=== PATIENT | male | born 1960 | race African-American/Black ===

== ENCOUNTER 2016-07-22 22:14 | Inpatient (IN) | payer OTHER ==
[~2016-07-22] VITALS: Ht 182.9 cm; Wt 95.4 kg
[~2016-07-22 22:14] MED LIST: DOLU1TAB PO; EMTR1TAB10 PO; GLC/500 PO; LPT10 PO; TRDI60 INJ
[2016-07-22] MEDS ORDERED: MoRPHine SULFATE 4 MG/ML 1 ML CARP\\VIAL IV STA (22:58)
[2016-07-22] MEDS ORDERED: SODIUM CHLORIDE 0.9% 1000ML 1,000 ML IV STA (22:58)
[2016-07-22] MEDS ORDERED: ONDANSETRON INJ 2 MG/ML 2 ML VIAL IV STA (22:58)
[2016-07-22] MEDS ORDERED: CHOLCAP5 PO (23:00)
--- NOTE | 2016-07-22 23:05 | EMERGENCY ROOM VISIT NOTE ---
History Report prepared by Jayna: Robert Olivier Under the Supervision of: Neil GongoraO. First contact with patient: 22:48 Chief Complaint: ABDOMINAL PAIN Stated Complaint: ABD PAIN/ [facility] Nursing Triage Summary: pt is an inmate at [facility], pt states not long after he ate supper tonight he developed right upper abd pain that radiates to the left. pt denies ever having this pain prior. pt does still have his gall bladder and appendix History of Present Illness The patient is a 56 year old male who presents to the Emergency Room with complaints of persistent right upper quadrant abdominal pain that began today a few hours prior to arrival. He currently rates his pain as a 9/10 in severity, but notes that it was originally 10/10 at onset. The patient states that his pain onset today following a bowel movement. He denies any vomiting or recent fevers. He does mention that he noticed some dark red blood in his stool a couple of days ago. He denies any history of ulcers. Source of History: patient Onset: A few hours [employer] Position: abdomen (RLQ) Symptom Intensity: 9/10 in severity Timing: other (Persistent) Associated Symptoms: No fevers, No vomiting Note: Patient notes dark red stool in the blood. Review of Systems See HPI for pertinent positives and negatives. A total of ten systems were reviewed and were otherwise negative. Past Medical & Surgical Medical Problems: (1) Neck pain Family History No pertinent family histories were recorded. Social History Smoking Status: Current Some Day Smoker Drug Use: cocaine Housing Status: other (Correctional facility) Occupation Status: other (inprisoned) Current/Historical Medications Scheduled Atorvastatin (Atorvastatin Calcium), 10 MG PO DAILY Cholecalciferol (Vitamin D3), 5,000 UNIT PO DAILY Dolutegravir Sodium (Tivicay), 50 MG PO DAILY Emtricitabine-Tenofovir Alafen (Descovy 200-25 mg), 1 TAB PO DAILY Metformin Hcl (Glucophage), 500 MG PO BID Allergies Coded Allergies: No Known Allergies (Unverified , 07/22/16) Physical Exam Vital Signs Date Time Temp Pulse Resp B/P (MAP) Pulse Ox O2 Delivery O2 Flow Rate FiO2 07/23/16 03:01 67 16 107/77 95 Room Air 07/23/16 02:31 68 19 107/72 94 Room Air 07/23/16 02:01 67 18 111/75 94 Room Air 07/23/16 01:30 74 21 121/81 95 07/23/16 01:00 72 17 137/83 95 07/23/16 00:45 132/87 07/23/16 00:00 74 18 124/73 93 07/22/16 23:30 74 19 123/76 88 07/22/16 23:01 145/86 07/22/16 22:28 36.4 72 26 135/85 99 Room Air Physical Exam GENERAL: Awake, alert, righting in pain. HENT: Normocephalic, atraumatic. Oropharynx unremarkable. EYES: Normal conjunctiva. Sclera non-icteric. NECK: Supple. No nuchal rigidity. FROM. No JVD. RESPIRATORY: Clear to auscultation. CARDIAC: Regular rate, normal rhythm. Extremities warm and well perfused. Pulses equal. ABDOMEN: Soft, distended. Tenderness in the RUQ and RLQ. No rebound or guarding. No masses. RECTAL: Deferred. MUSCULOSKELETAL: Chest examination reveals no tenderness. The back is symmetrical on inspection without obvious abnormality. There is no CVA tenderness to palpation. No joint edema. LOWER EXTREMITIES: Calves are equal size bilaterally and non-tender. No edema. No discoloration. NEURO: Normal sensorium. No sensory or motor deficits noted. SKIN: No rash or jaundice noted. Medical Decision & Procedures ER Provider Diagnostic Interpretation: X ray results as stated below per my interpretation and radiologist interpretation. Other radiology results as stated below per my review and radiologist interpretation CT SCAN OF THE ABDOMEN AND PELVIS WITH IV CONTRAST CLINICAL HISTORY: Right upper quadrant abdominal pain. COMPARISON STUDY: No priors. TECHNIQUE: Following the IV administration of 93 cc of Optiray 320, CT scan of the abdomen and pelvis is performed from the lung bases to the proximal femora. Images are reviewed in the axial, sagittal, and coronal planes. IV contrast was administered without complication. Automated dose control exposure was utilized. CT DOSE: 489.57 mGy.cm FINDINGS: Lung bases: The heart is mildly enlarged and without pericardial effusion. The lung bases are clear noting dependent atelectasis. There is a tiny hiatal hernia. Liver: The contrast-enhanced liver is normal in size, contour, and attenuation. There is no intrahepatic biliary ductal dilatation. The hepatic veins and portal veins are patent. There is a 3.2 cm low-attenuation lesion in the right hepatic lobe seen on image #84. This demonstrates small foci of peripheral nodular enhancement, and although incompletely characterized likely represents a hemangioma. A similar-appearing 1.4 cm lesion is seen in the left lobe on image #62. Gallbladder: Unremarkable. Spleen: Normal in size and attenuation. Pancreas: Unremarkable. Adrenal glands: Unremarkable. Kidneys: The contrast enhanced kidneys are normal in size and without hydronephrosis. The kidneys enhance symmetrically. A 2.1 cm cyst is identified in the right upper pole. Abdominal vasculature: The abdominal aorta is normal in course and caliber noting mild atherosclerotic calcification. Bowel: There is no evidence of bowel obstruction. There are numerous mildly distended and fluid-filled loops of small bowel in the lower abdomen and pelvis. These measure up to 2.8 cm in diameter. These lobes appear minimally thick-walled and hyperemic. Mild perienteric stranding is noted. The appearance suggests a nonspecific enteritis. The appendix is well-visualized and normal. Peritoneum: There is no intraperitoneal free air. Trace free fluid is seen in the pelvis. There is a small fat-containing umbilical hernia. Lymphadenopathy: None. Pelvic viscera: The prostate gland is enlarged and heterogeneous, measuring 5 cm in transverse diameter. The bladder wall is thickened and trabeculated suggesting chronic outlet obstruction. The seminal vesicles are normal as visualized . Skeletal structures: No lytic or blastic lesions are seen. There are scattered bone islands noted in the lumbar spine pelvis. Mild arthritic change is seen in the hips. IMPRESSION: 1. Findings suggest a nonspecific enteritis of the mid to distal small bowel. This is likely on an infectious or inflammatory basis in this age group. Clinical correlation will be required. 2. There is no convincing evidence of mechanical bowel obstruction. 3. Mild cardiomegaly. 4. There are 2 incompletely characterized hepatic lesions as above measuring up to 3.2 cm with imaging characteristics that suggest these likely represent benign hemangiomas. Follow-up with a nonemergent MRI of the liver is recommended for definitive characterization. 5. Prostatomegaly with evidence of chronic bladder outlet obstruction. 6. Trace fluid in the pelvis is likely on a reactive basis. 7. Additional findings as above. Electronically signed by: Jorge Brady M.D. 07/23/2016 12:52 AM Dictated Date/Time: 07/23/2016 12:42 AM Laboratory Results 07/22/16 22:25 Red Blood Count 4.36, Mean Corpuscular Volume 94.5, Mean Corpuscular Hemoglobin 32.3, Mean Corpuscular Hemoglobin Concent 34.2, Mean Platelet Volume 9.2, Neutrophils (%) (Auto) 56.6, Lymphocytes (%) (Auto) 34.6, Monocytes (%) (Auto) 8.0, Eosinophils (%) (Auto) 0.4, Basophils (%) (Auto) 0.1, Neutrophils # (Auto) 4.04, Lymphocytes # (Auto) 2.47, Monocytes # (Auto) 0.57, Eosinophils # (Auto) 0.03, Basophils # (Auto) 0.01 07/22/16 22:25 Test 07/22/16 22:25 07/23/16 01:07 White Blood Count 7.14 K/uL (4.8-10.8) Red Blood Count 4.36 M/uL (4.7-6.1) Hemoglobin 14.1 g/dL (14.0-18.0) Hematocrit 41.2 % (42-52) Mean Corpuscular Volume 94.5 fL (80-100) Mean Corpuscular Hemoglobin 32.3 pg (25-34) Mean Corpuscular Hemoglobin Concent 34.2 g/dl (32-36) Platelet Count 192 K/uL (130-400) Mean Platelet Volume 9.2 fL (7.4-10.4) Neutrophils (%) (Auto) 56.6 % Lymphocytes (%) (Auto) 34.6 % Monocytes (%) (Auto) 8.0 % Eosinophils (%) (Auto) 0.4 % Basophils (%) (Auto) 0.1 % Neutrophils # (Auto) 4.04 K/uL (1.4-6.5) Lymphocytes # (Auto) 2.47 K/uL (1.2-3.4) Monocytes # (Auto) 0.57 K/uL (0.11-0.59) Eosinophils # (Auto) 0.03 K/uL (0-0.5) Basophils # (Auto) 0.01 K/uL (0-0.2) RDW Standard Deviation 42.9 fL (36.4-46.3) RDW Coefficient of Variation 12.3 % (11.5-14.5) Immature Granulocyte % (Auto) 0.3 % Immature Granulocyte # (Auto) 0.02 K/uL (0.00-0.02) Anion Gap 8.0 mmol/L (3-11) Est Creatinine Clear Calc Drug Dose 88.0 ml/min Estimated GFR () 85.9 Estimated GFR (Non- 74.1 BUN/Creatinine Ratio 16.0 (10-20) Calcium Level 9.3 mg/dl (8.5-10.1) Total Bilirubin 0.3 mg/dl (0.2-1) Direct Bilirubin mg/dl (0-0.2) Aspartate Amino Transf (AST/SGOT) 23 U/L (15-37) Alanine Aminotransferase (ALT/SGPT) 23 U/L (12-78) Alkaline Phosphatase 59 U/L (45-117) Total Protein 7.8 gm/dl (6.4-8.2) Albumin 4.2 gm/dl (3.4-5.0) Lipase 526 U/L (73-393) Chemistry Specimen Hemolysis Urine Color YELLOW Urine Appearance CLEAR (CLEAR) Urine pH 5.0 (4.5-7.5) Urine Specific [place] 1.043 (1.000-1.030) Urine Protein NEG (NEG) Urine Glucose (UA) NEG (NEG) Urine Ketones NEG (NEG) Urine Occult Blood NEG (NEG) Urine Nitrite NEG (NEG) Urine Bilirubin NEG (NEG) Urine Urobilinogen NEG (NEG) Urine Leukocyte Esterase NEG (NEG) Laboratory results reviewed by me Medications Administered Medications (Trade) Dose Ordered Sig/Pamela Route Start Time Stop Time Status Last Admin Dose Admin Sodium Chloride 1,000 ml @ 999 mls/hr Q1H1M STAT IV 07/22/16 22:58 07/22/16 23:58 DC 07/22/16 23:13 999 MLS/HR Ondansetron HCl (Zofran Inj) 4 mg NOW STAT IV 07/22/16 22:58 07/22/16 23:02 DC 07/22/16 23:12 4 MG Morphine Sulfate (MoRPHine SULFATE INJ) 4 mg NOW STAT IV 07/22/16 22:58 07/22/16 23:02 DC 07/22/16 23:12 4 MG Morphine Sulfate (MoRPHine SULFATE INJ) 4 mg NOW STAT IV 07/23/16 01:17 07/23/16 01:18 DC 07/23/16 01:33 4 MG Ondansetron HCl (Zofran Inj) 4 mg NOW STAT IV 07/23/16 01:17 07/23/16 01:18 DC 07/23/16 01:33 4 MG Ciprofloxacin/ Dextrose (Cipro / D5W) 400 mg STK-MED ONCE .ROUTE 07/23/16 02:39 07/23/16 02:40 DC 07/23/16 02:42 400 MG ED Course 2255: The patient was evaluated in room B10. A complete history and physical exam was performed. 2258: Ordered Morphine Sulfate 4 mg IV, Zofran 4 mg IV, Sodium Chloride 1000 mL @ 999 mL/hr IV. 0117: Ordered Zofran 4 mg IV, Morphine Sulfate 4 mg IV. 0230: Dr. Yazmin BECK Hospitalist will evaluate this patient for further treatment. Medical Decision Differential Diagnosis includes: Cholecystitis, appendicitis, colitis, gastroenteritis, bowel obstruction, dehydration, pancreatitis. Continues complaining of pain; patient on IV pain medicine IV fluids. Patient has mild pancreatitis enteritis. Case was discussed with the hospitalist for admission patient will be admitted for intractable abdominal pain Consults Time Called: 0204 Consulting Physician: Dr. Yazmin BECK Hospitalist Returned Call: 0230 Dr. Yazmin BECK Hospitalist will evaluate this patient for further treatment. Impression Primary Impression: Abdominal pain Additional Impressions: Enteritis Pancreatitis Scribe Attestation The scribe's documentation has been prepared under my direction and personally reviewed by me in its entirety. I confirm that the note above accurately reflects all work, treatment, procedures, and medical decision making performed by me. Departure Information Dispostion Being Evaluated By Hospitalist Referrals Vida ESPINO (PCP) Patient Instructions My [facility] Problem Qualifiers
[2016-07-22 23:15] LABS: BASO % 0.1 %; BASO ABS # 0.01 K/uL (0-0.2); COMPLETE YES; EOS % 0.4 %; HEMATOCRIT 41.2 % (42-52); IG% 0.3 %; LYMPH % 34.6 %; LYMPH ABS # 2.47 K/uL (1.2-3.4); MEAN CELL VOLUME 94.5 fL (80-100); MEAN CORPUSCULAR HEMOGLOBIN 32.3 pg (25-34); MEAN CORPUSCULAR HGB CONC 34.2 g/dl (32-36); MEAN PLATELET VOLUME 9.2 fL (7.4-10.4); NEUT % 56.6 %; PLATELET COUNT 192 K/uL (130-400); RED BLOOD COUNT 4.36 M/uL (4.7-6.1); WHITE BLOOD COUNT 7.14 K/uL (4.8-10.8)
[2016-07-22] MEDS ORDERED: OPTIRAY 320 IV PRN (23:15)
[2016-07-22 23:44] LABS: ALKALINE PHOSPHATASE 59 U/L (45-117); ALT/SGPT 23 U/L (12-78); AST/SGOT 23 U/L (15-37); BLOOD UREA NITROGEN 18 mg/dl (7-18); CALCIUM 9.3 mg/dl (8.5-10.1); CARBON DIOXIDE 29 mmol/L (21-32); CHLORIDE 106 mmol/L (98-107); GLUCOSE 114 mg/dl (70-99); POTASSIUM 3.9 mmol/L (3.5-5.1); SODIUM 143 mmol/L (136-145)
--- NOTE | 2016-07-23 00:54 | DIAGNOSTIC IMAGING REPORT ---
CT SCAN OF THE ABDOMEN AND PELVIS WITH IV CONTRAST CLINICAL HISTORY: Right upper quadrant abdominal pain. COMPARISON STUDY: No priors. TECHNIQUE: Following the IV administration of 93 cc of Optiray 320, CT scan of the abdomen and pelvis is performed from the lung bases to the proximal femora. Images are reviewed in the axial, sagittal, and coronal planes. IV contrast was administered without complication. Automated dose control exposure was utilized. CT DOSE: 489.57 mGy.cm FINDINGS: Lung bases: The heart is mildly enlarged and without pericardial effusion. The lung bases are clear noting dependent atelectasis. There is a tiny hiatal hernia. Liver: The contrast-enhanced liver is normal in size, contour, and attenuation. There is no intrahepatic biliary ductal dilatation. The hepatic veins and portal veins are patent. There is a 3.2 cm low-attenuation lesion in the right hepatic lobe seen on image #84. This demonstrates small foci of peripheral nodular enhancement, and although incompletely characterized likely represents a hemangioma. A similar-appearing 1.4 cm lesion is seen in the left lobe on image #62. Gallbladder: Unremarkable. Spleen: Normal in size and attenuation. Pancreas: Unremarkable. Adrenal glands: Unremarkable. Kidneys: The contrast enhanced kidneys are normal in size and without hydronephrosis. The kidneys enhance symmetrically. A 2.1 cm cyst is identified in the right upper pole. Abdominal vasculature: The abdominal aorta is normal in course and caliber noting mild atherosclerotic calcification. Bowel: There is no evidence of bowel obstruction. There are numerous mildly distended and fluid-filled loops of small bowel in the lower abdomen and pelvis. These measure up to 2.8 cm in diameter. These lobes appear minimally thick-walled and hyperemic. Mild perienteric stranding is noted. The appearance suggests a nonspecific enteritis. The appendix is well-visualized and normal. Peritoneum: There is no intraperitoneal free air. Trace free fluid is seen in the pelvis. There is a small fat-containing umbilical hernia. Lymphadenopathy: None. Pelvic viscera: The prostate gland is enlarged and heterogeneous, measuring 5 cm in transverse diameter. The bladder wall is thickened and trabeculated suggesting chronic outlet obstruction. The seminal vesicles are normal as visualized . Skeletal structures: No lytic or blastic lesions are seen. There are scattered bone islands noted in the lumbar spine pelvis. Mild arthritic change is seen in the hips. IMPRESSION: 1. Findings suggest a nonspecific enteritis of the mid to distal small bowel. This is likely on an infectious or inflammatory basis in this age group. Clinical correlation will be required. 2. There is no convincing evidence of mechanical bowel obstruction. 3. Mild cardiomegaly. 4. There are 2 incompletely characterized hepatic lesions as above measuring up to 3.2 cm with imaging characteristics that suggest these likely represent benign hemangiomas. Follow-up with a nonemergent MRI of the liver is recommended for definitive characterization. 5. Prostatomegaly with evidence of chronic bladder outlet obstruction. 6. Trace fluid in the pelvis is likely on a reactive basis. 7. Additional findings as above. Electronically signed by: Jorge Brady M.D. 07/23/2016 12:52 AM Dictated Date/Time: 07/23/2016 12:42 AM
[2016-07-23 01:17] LABS: URINE APPEARANCE CLEAR (CLEAR); URINE BILIRUBIN NEG (NEG); URINE COLOR YELLOW; URINE NITRITE NEG (NEG); URINE SPECIFIC GRAVITY 1.043 (1.000-1.030); UROBILINOGEN NEG (NEG); ZZUR CULT IF INDIC CLEAN CATCH NO
[2016-07-23] MEDS ORDERED: MoRPHine SULFATE 4 MG/ML 1 ML CARP\\VIAL IV STA (01:17)
[2016-07-23] MEDS ORDERED: ONDANSETRON INJ 2 MG/ML 2 ML VIAL IV STA (01:17)
[2016-07-23 01:23] LABS: MANUAL MICROSCOPIC REQUIRED? NO; REVIEW REQ? NO
[2016-07-23] MEDS ORDERED: CIPROFLOXACIN 400MG / 200ML D5W IV STA (02:30)
[2016-07-23] MEDS ORDERED: CIPROFLOXACIN 400MG / 200ML D5W ONE (02:39)
[2016-07-23] MEDS ORDERED: DEXTROSE 50% 50 ML SYR IV PRN (03:15)
[2016-07-23] MEDS ORDERED: GLUCAGON FOR INJ 1 MG VIAL SQ PRN (03:15)
[2016-07-23] MEDS ORDERED: ACETAMINOPHEN IV 100 ML IV PRN (03:15)
[2016-07-23] MEDS ORDERED: GLUCOSE 10 TABS/TUBE PO PRN (03:15)
[2016-07-23] MEDS ORDERED: GLUCOSE 40% GEL 15 GM TUBE PO PRN (03:15)
[2016-07-23] MEDS ORDERED: MoRPHine SULFATE 4 MG/ML 1 ML CARP\\VIAL IV PRN (03:15)
[2016-07-23] MEDS ORDERED: MoRPHine SULFATE 2 MG/ML CARP IV PRN (03:15)
[2016-07-23 03:57] VITALS: BP 130/82; PULSE 84; TEMP 36.6; O2SAT 90; Ht 182.9 cm; Wt 95.4 kg
[2016-07-23] MEDS: NSS + 20MEQ KCL 1000ML 1,000 ML IV SCH ×2 (04:40→14:03)
[2016-07-23] MEDS: METRONIDAZOLE / NSS 500 MG in PREMIXED NSS 100 ML IV SCH ×3 (04:40→19:48)
--- NOTE | 2016-07-23 04:45 | History and Physical ---
History & Physical Date & Time of Service: Jul 23, 2016 at 04:45 Chief Complaint: Enteritis, Bph Bladder Outlet Obstruction Primary Care Physician: Vida ESPINO History of Present Illness Source: patient The patient is a 56-year-old male inmate of [facility], who presents to the emergency department with right upper quadrant pain that began a few hours prior to arrival, just after a bowel movement. He has not had any recent fevers or chills, or nausea or vomiting. He reports seeing some dark red blood in the stool a few days ago. He has not had any recent change in dietary intake. Social History Smoking Status: Current Some Day Smoker Smokeless Tobacco Use: No Alcohol Use: none Drug Use: cocaine Housing status: other Occupational Status: other (inprisoned) Multi-Drug Resistant Organisms History of MDRO: No Allergies Coded Allergies: No Known Allergies (Unverified , 07/22/16) Home Medications Scheduled Atorvastatin (Atorvastatin Calcium), 10 MG PO DAILY Cholecalciferol (Vitamin D3), 5,000 UNIT PO DAILY Dolutegravir Sodium (Tivicay), 50 MG PO DAILY Emtricitabine-Tenofovir Alafen (Descovy 200-25 mg), 1 TAB PO DAILY Metformin Hcl (Glucophage), 500 MG PO BID Review of Systems The patient denies chest pain, palpitations, shortness of breath, cough, lower extremity swelling, vision change, hearing change, sore throat, fevers, chills, sweats, weight change, fatigue, nausea, vomiting, blood in urine, dysuria, urinary frequency or urgency, lightheadedness, dizziness, headache, memory loss , rash, imbalance, focal weakness, numbness or tingling in arms or legs, arthralgias or myalgias, back or neck pain, night sweats, or allergy symptoms. The review of systems is otherwise negative other than for that already noted above, and at least 10 systems have been reviewed. Physical Exam Vital Signs Date Time Temp Pulse Resp B/P (MAP) Pulse Ox O2 Delivery O2 Flow Rate FiO2 07/23/16 03:57 36.6 84 20 130/82 90 Room Air 07/23/16 03:01 67 16 107/77 95 Room Air 07/23/16 02:31 68 19 107/72 94 Room Air 07/23/16 02:01 67 18 111/75 94 Room Air 07/23/16 01:30 74 21 121/81 95 07/23/16 01:00 72 17 137/83 95 07/23/16 00:45 132/87 07/23/16 00:00 74 18 124/73 93 07/22/16 23:30 74 19 123/76 88 07/22/16 23:01 145/86 07/22/16 22:28 36.4 72 26 135/85 99 Room Air The patient is awake, well-developed and adequately nourished, alert and oriented 3, normocephalic and atraumatic, lying in bed and in no acute distress. HEENT--PERRL, EOMI, mucous membranes and oropharynx dry. Neck--supple, no JVD or bruits, thyroid normal, trachea midline, no adenopathy. Heart--normal S1 and S2, no extra beats, no murmurs, rubs or gallops. Lungs--clear bilaterally but diminished throughout, no respiratory distress, no accessory muscle use. Abdomen--normal bowel sounds and soft, tender epigastric area, nondistended, no hernias or masses, no organomegaly. Extremities--no cyanosis, clubbing or edema. There are good distal pulses b/l. Dermatologic--normal skin turgor, normal color, warm and dry, no abnormal lymph nodes, no rash. Neurologic--cranial nerves II through XII grossly intact, motor and sensory examination normal. Rheumatologic--normal range of motion, nontender, muscles and joints. Psychiatric--normal affect. Diagnostics Laboratory Results Results Past 24 Hours Test 07/22/16 22:25 07/23/16 01:07 Range/Units White Blood Count 7.14 4.8-10.8 K/uL Red Blood Count 4.36 4.7-6.1 M/uL Hemoglobin 14.1 14.0-18.0 g/dL Hematocrit 41.2 42-52 % Mean Corpuscular Volume 94.5 80-100 fL Mean Corpuscular Hemoglobin 32.3 25-34 pg Mean Corpuscular Hemoglobin Concent 34.2 32-36 g/dl Platelet Count 192 130-400 K/uL Mean Platelet Volume 9.2 7.4-10.4 fL Neutrophils (%) (Auto) 56.6 % Lymphocytes (%) (Auto) 34.6 % Monocytes (%) (Auto) 8.0 % Eosinophils (%) (Auto) 0.4 % Basophils (%) (Auto) 0.1 % Neutrophils # (Auto) 4.04 1.4-6.5 K/uL Lymphocytes # (Auto) 2.47 1.2-3.4 K/uL Monocytes # (Auto) 0.57 0.11-0.59 K/uL Eosinophils # (Auto) 0.03 0-0.5 K/uL Basophils # (Auto) 0.01 0-0.2 K/uL RDW Standard Deviation 42.9 36.4-46.3 fL RDW Coefficient of Variation 12.3 11.5-14.5 % Immature Granulocyte % (Auto) 0.3 % Immature Granulocyte # (Auto) 0.02 0.00-0.02 K/uL Sodium Level 143 136-145 mmol/L Potassium Level 3.9 3.5-5.1 mmol/L Chloride Level 106 98-107 mmol/L Carbon Dioxide Level 29 21-32 mmol/L Anion Gap 8.0 3-11 mmol/L Blood Urea Nitrogen 18 7-18 mg/dl Creatinine 1.10 0.60-1.40 mg/dl Est Creatinine Clear Calc Drug Dose 88.0 ml/min Estimated GFR () 85.9 Estimated GFR (Non- 74.1 BUN/Creatinine Ratio 16.0 10-20 Random Glucose 114 70-99 mg/dl Calcium Level 9.3 8.5-10.1 mg/dl Total Bilirubin 0.3 0.2-1 mg/dl Direct Bilirubin 0-0.2 mg/dl Aspartate Amino Transf (AST/SGOT) 23 15-37 U/L Alanine Aminotransferase (ALT/SGPT) 23 12-78 U/L Alkaline Phosphatase 59 45-117 U/L Total Protein 7.8 6.4-8.2 gm/dl Albumin 4.2 3.4-5.0 gm/dl Lipase 526 73-393 U/L Chemistry Specimen Hemolysis Urine Color YELLOW Urine Appearance CLEAR CLEAR Urine pH 5.0 4.5-7.5 Urine Specific [place] 1.043 1.000-1.030 Urine Protein NEG NEG Urine Glucose (UA) NEG NEG Urine Ketones NEG NEG Urine Occult Blood NEG NEG Urine Nitrite NEG NEG Urine Bilirubin NEG NEG Urine Urobilinogen NEG NEG Urine Leukocyte Esterase NEG NEG Microbiology Results 07/23/16 MRSA DNA Surveillance Screen, Received Pending Diagnostic Radiology Patient Name: AMARJIT SCHREIBER [id number] Unit Number: [id number] Dictated: 07/23/1641 Transcribed: 07/23/1641 EV Printed Date/Time: [~ rep prt dt]/[~ rep prt tm] [~ rep ct labl] - [~ rep ct ivnm] [facility] [place] [address] Dictated: 07/23/1641 Transcribed: 07/23/1641 EV Printed Date/Time: [~ rep prt dt]/[~ rep prt tm] [~ rep ct labl] - [~ rep ct ivnm] [~ rep ct add3]] CT SCAN OF THE ABDOMEN AND PELVIS WITH IV CONTRAST CLINICAL HISTORY: Right upper quadrant abdominal pain. COMPARISON STUDY: No priors. TECHNIQUE: Following the IV administration of 93 cc of Optiray 320, CT scan of the abdomen and pelvis is performed from the lung bases to the proximal femora. Images are reviewed in the axial, sagittal, and coronal planes. IV contrast was administered without complication. Automated dose control exposure was utilized. CT DOSE: 489.57 mGy.cm FINDINGS: Lung bases: The heart is mildly enlarged and without pericardial effusion. The lung bases are clear noting dependent atelectasis. There is a tiny hiatal hernia. Liver: The contrast-enhanced liver is normal in size, contour, and attenuation. There is no intrahepatic biliary ductal dilatation. The hepatic veins and portal veins are patent. There is a 3.2 cm low-attenuation lesion in the right hepatic lobe seen on image #84. This demonstrates small foci of peripheral nodular enhancement, and although incompletely characterized likely represents a hemangioma. A similar-appearing 1.4 cm lesion is seen in the left lobe on image #62. Gallbladder: Unremarkable. Spleen: Normal in size and attenuation. Pancreas: Unremarkable. Adrenal glands: Unremarkable. Kidneys: The contrast enhanced kidneys are normal in size and without hydronephrosis. The kidneys enhance symmetrically. A 2.1 cm cyst is identified in the right upper pole. Abdominal vasculature: The abdominal aorta is normal in course and caliber noting mild atherosclerotic calcification. Bowel: There is no evidence of bowel obstruction. There are numerous mildly distended and fluid-filled loops of small bowel in the lower abdomen and pelvis. These measure up to 2.8 cm in diameter. These lobes appear minimally thick-walled and hyperemic. Mild perienteric stranding is noted. The appearance suggests a nonspecific enteritis. The appendix is well-visualized and normal. Peritoneum: There is no intraperitoneal free air. Trace free fluid is seen in the pelvis. There is a small fat-containing umbilical hernia. Lymphadenopathy: None. Pelvic viscera: The prostate gland is enlarged and heterogeneous, measuring 5 cm in transverse diameter. The bladder wall is thickened and trabeculated suggesting chronic outlet obstruction. The seminal vesicles are normal as visualized . Skeletal structures: No lytic or blastic lesions are seen. There are scattered bone islands noted in the lumbar spine pelvis. Mild arthritic change is seen in the hips. IMPRESSION: 1. Findings suggest a nonspecific enteritis of the mid to distal small bowel. This is likely on an infectious or inflammatory basis in this age group. Clinical correlation will be required. 2. There is no convincing evidence of mechanical bowel obstruction. 3. Mild cardiomegaly. 4. There are 2 incompletely characterized hepatic lesions as above measuring up to 3.2 cm with imaging characteristics that suggest these likely represent benign hemangiomas. Follow-up with a nonemergent MRI of the liver is recommended for definitive characterization. 5. Prostatomegaly with evidence of chronic bladder outlet obstruction. 6. Trace fluid in the pelvis is likely on a reactive basis. 7. Additional findings as above. Electronically signed by: Jorge Brady M.D. 07/23/2016 12:52 AM Dictated Date/Time: 07/23/2016 12:42 AM The status of this report is Signed. Draft = Not yet reviewed or approved by Radiologist. Signed = Reviewed and approved by Radiologist. <AttendingPhy></AttendingPhy> <FamilyPhy>SCIVida</FamilyPhy> <PrimaryPhy>SCIRicoVida</PrimaryPhy> <UnitNumber>[id number]</UnitNumber> <VisitNumber> [id number]</VisitNumber> <PatientName>AMARJIT SCHREIBER [id number]</PatientName> < DateOfBirth>1960</DateOfBirth> <Location>[facility]</Location> <ServiceDate>04/08</ServiceDate> <MNE>ESINDI</MNE> <OrderingPhy>Bennett, Omari Granados DO</ OrderingPhy> <OrderingPhyMNE>f rep ord dr menchaca</OrderingPhyMNE> <DictatingPhyMNE> f rep dict dr menchaca</DictatingPhyMNE> <CCListMNE>f rep ct mne</CCListMNE> < AdmittingPhyMNE>f pt admit dr menchaca</AdmittingPhyMNE> <AttendingPhyMNE>f pt attend dr menchaca</AttendingPhyMNE> <ConsultingPhyMNE>f pt consult dr menchaca</ConsultingPhyMNE> <FamilyPhyMNE>f pt fam dr menchaca</FamilyPhyMNE> <OtherPhyMNE>f pt other dr menchaca</OtherPhyMNE> < PrimaryPhyMNE>f pt prim care dr menchaca</PrimaryPhyMNE> <ReferringPhyMNE>f pt referring dr menchaca</ReferringPhyMNE> Impression Assessment and Plan Enteritis/dehydration--the patient was admitted to the medical floor. We placed on normal saline with potassium chloride 20 mEq at 100 mils per hour, Cipro 40 mg IV 2 hours, Flagyl 500 mg IV every 8 hours, Zofran 4 mg IV every 6 hours when necessary, Protonix 40 mg IV daily. We'll check stool for culture, O &P and C. difficile. HIV--the patient will need to have his medications Tivicay and Des[facility] due to being nonformulary at the hospital. Consult infectious disease. BPH with MONTANO--will start tamsulosin 0.4 mg by mouth at bedtime. Diabetes mellitus--hold metformin for 500 mg by mouth twice a day, and place on Accu-Cheks before meals and at bedtime with NovoLog coverage scale. Hypercholesterolemia--hold atorvastatin 10 mg by mouth daily. Level of Care Med/Surg Advanced Directives Existing Advance Directive: No Existing Living Will: No Existing Power of Production Specialist: No Resuscitation Status FULL RESUSCITATION VTE Prophylaxis VTE Risk Assessment Done? Y/N: Yes Risk Level: Moderate Given or contraindicated: SCD's
[2016-07-23] MEDS: INSULIN ASPART 100 UNITS/ML 3 ML PEN SC SCH ×4 (06:30→21:37)
[2016-07-23] MEDS: CHOLECALCIFEROL 1000 INTER.UNIT TAB PO SCH (07:31)
[2016-07-23 07:48] VITALS: BP 112/70; PULSE 59; TEMP 36.7; O2SAT 96
[2016-07-23 08:00] VITALS: O2SAT 96
[2016-07-23] MEDS ORDERED: KETOROLAC TROMETHAMINE 15 MG/ML VIAL IV PRN (10:15)
[2016-07-23] MEDS: PANTOprazole INJ 40 MG in SYRINGE 0 ML IV SCH (11:25)
[2016-07-23] MEDS: ACETAMINOPHEN 325 MG TAB PO PRN ×2 (11:32→16:36)
--- NOTE | 2016-07-23 13:47 | Progress Note ---
Subjective Date of Service: Jul 23, 2016. Subjective Pt evaluation today including: conversation w/ patient, physical exam, chart review, lab review, review of studies, review of inpatient medication list feeling better than last night - notes pain now about a 5/10 - still needing morphine but feeling better. no BM - notes feeling almost like having one would help but none. no diarrhea. no vomiting - feels almost like he might get nauseated but not really nauseated either. reiterates good control of HIV as was the case when he and i last met in november. no other complaints Problem List Medical Problems: (1) Abdominal pain Status: Acute (2) Enteritis Status: Acute (3) Failure of outpatient treatment Status: Acute (4) Neck pain on left side Status: Acute (5) Pancreatitis Status: Acute (6) Tonsillitis Status: Acute Review of Systems ROS otherwise negative except for as above Objective Vital Signs Date Time Temp Pulse Resp B/P (MAP) Pulse Ox O2 Delivery O2 Flow Rate FiO2 07/23/16 08:00 96 Room Air 07/23/16 07:48 36.7 59 20 112/70 (84) 96 Room Air 07/23/16 03:57 36.6 84 20 130/82 90 Room Air 07/23/16 03:01 67 16 107/77 95 Room Air 07/23/16 02:31 68 19 107/72 94 Room Air 07/23/16 02:01 67 18 111/75 94 Room Air 07/23/16 01:30 74 21 121/81 95 07/23/16 01:00 72 17 137/83 95 07/23/16 00:45 132/87 07/23/16 00:00 74 18 124/73 93 07/22/16 23:30 74 19 123/76 88 07/22/16 23:01 145/86 07/22/16 22:28 36.4 72 26 135/85 99 Room Air Physical Exam General Appearance: no apparent distress Eyes: EOMI ENT: hearing grossly normal Neck: trachea midline Respiratory/Chest: no respiratory distress, no accessory muscle use Abdomen: soft, + distended (moderately distended mild/moderate tender worse at epigastrum but no guarding/rebound/rigidity) Extremities: normal range of motion Neurologic/Psychiatric: nail kegger II-XII nml as tested, alert, normal mood/affect Skin: normal color, warm/dry Laboratory Results Last 24 Hours Test 07/22/16 22:25 07/23/16 01:07 07/23/16 08:10 07/23/16 11:51 White Blood Count 7.14 K/uL Red Blood Count 4.36 M/uL Hemoglobin 14.1 g/dL Hematocrit 41.2 % Mean Corpuscular Volume 94.5 fL Mean Corpuscular Hemoglobin 32.3 pg Mean Corpuscular Hemoglobin Concent 34.2 g/dl Platelet Count 192 K/uL Mean Platelet Volume 9.2 fL Neutrophils (%) (Auto) 56.6 % Lymphocytes (%) (Auto) 34.6 % Monocytes (%) (Auto) 8.0 % Eosinophils (%) (Auto) 0.4 % Basophils (%) (Auto) 0.1 % Neutrophils # (Auto) 4.04 K/uL Lymphocytes # (Auto) 2.47 K/uL Monocytes # (Auto) 0.57 K/uL Eosinophils # (Auto) 0.03 K/uL Basophils # (Auto) 0.01 K/uL RDW Standard Deviation 42.9 fL RDW Coefficient of Variation 12.3 % Immature Granulocyte % (Auto) 0.3 % Immature Granulocyte # (Auto) 0.02 K/uL Sodium Level 143 mmol/L Potassium Level 3.9 mmol/L Chloride Level 106 mmol/L Carbon Dioxide Level 29 mmol/L Anion Gap 8.0 mmol/L Blood Urea Nitrogen 18 mg/dl Creatinine 1.10 mg/dl Est Creatinine Clear Calc Drug Dose 88.0 ml/min Estimated GFR () 85.9 Estimated GFR (Non- 74.1 BUN/Creatinine Ratio 16.0 Random Glucose 114 mg/dl Calcium Level 9.3 mg/dl Total Bilirubin 0.3 mg/dl Direct Bilirubin mg/dl Aspartate Amino Transf (AST/SGOT) 23 U/L Alanine Aminotransferase (ALT/SGPT) 23 U/L Alkaline Phosphatase 59 U/L Total Protein 7.8 gm/dl Albumin 4.2 gm/dl Lipase 526 U/L Chemistry Specimen Hemolysis Urine Color YELLOW Urine Appearance CLEAR Urine pH 5.0 Urine Specific [place] 1.043 Urine Protein NEG Urine Glucose (UA) NEG Urine Ketones NEG Urine Occult Blood NEG Urine Nitrite NEG Urine Bilirubin NEG Urine Urobilinogen NEG Urine Leukocyte Esterase NEG Bedside Glucose 104 mg/dl 102 mg/dl Assessment and Plan Enteritis/dehydration--continue cipro/flagyl and prns for pain/nausea. given acute onset and severity, without vomiting or diarrhea - agree abx to cover for possible bacterial enteritis. does appear improving. follow clinically. clear liquids, then give consideration for slow advance of diet as tolerated elevated lipase - clinically doesn't appear c/w pancreatitis - likely from intestinal stretch from above. follow clinically; repeat lipase in the future to ensure normalization HIV-- reliable historian and notes good control of HIV, so doubt above relates to HIV/AIDS. as long as he's clinically improving, will hold off on ID consult , continue HIV meds BPH with MONTANO-- tamsulosin 0.4 mg by mouth at bedtime. follow Diabetes mellitus--hold metformin for 500 mg by mouth twice a day, and place on Accu-Cheks before meals and at bedtime with NovoLog coverage scale. sugars reasonable right now, check A1c Hypercholesterolemia--hold atorvastatin 10 mg by mouth daily until able to take PO better DVT proph - lovenox (will follow for any melena since he had darker stool reportedly prior to admission - but certainly nothing in current picture c/w GI bleeding so benefits of VTE prevention outweigh any possible GI bleed risks)
[2016-07-23] MEDS: CIPROFLOXACIN / D5W 400 MG in PREMIXED IN D5W 200 ML IV SCH (14:04)
[2016-07-23 14:32] LABS: ESTIMATED AVERAGE GLUCOSE 134 mg/dl; HA1C FLAG Normal (Normal)
[2016-07-23 14:46] LABS: PROTHROMBIN TIME (PATIENT) 11.2 SECONDS (9.0-12.0)
[2016-07-23 15:04] VITALS: BP 105/67; PULSE 54; TEMP 36.4; O2SAT 94
[2016-07-23 16:00] VITALS: O2SAT 94
[2016-07-23] MEDS ORDERED: NURSING VERBAL MED ORDER ONE (18:30)
[2016-07-23] MEDS ORDERED: ONDANSETRON INJ 2 MG/ML 2 ML VIAL IV PRN (19:15)
[2016-07-23 23:09] VITALS: BP 98/60; PULSE 57; TEMP 36.4; O2SAT 96
[2016-07-24] MEDS: ACETAMINOPHEN 325 MG TAB PO PRN (00:04)
[2016-07-24] MEDS: NSS + 20MEQ KCL 1000ML 1,000 ML IV SCH (02:25)
[2016-07-24] MEDS: CIPROFLOXACIN / D5W 400 MG in PREMIXED IN D5W 200 ML IV SCH ×2 (02:25→13:28)
[2016-07-24] MEDS: METRONIDAZOLE / NSS 500 MG in PREMIXED NSS 100 ML IV SCH ×3 (04:07→20:45)
[2016-07-24 07:30] VITALS: BP 132/82; PULSE 56; TEMP 36.4; O2SAT 98
[2016-07-24 08:00] VITALS: O2SAT 98
[2016-07-24] MEDS: CHOLECALCIFEROL 1000 INTER.UNIT TAB PO SCH (08:52)
[2016-07-24] MEDS: INSULIN ASPART 100 UNITS/ML 3 ML PEN SC SCH ×4 (08:53→20:56)
[2016-07-24] MEDS: ENOXAPARIN 40 MG/0.4 ML SYR SQ SCH (08:54)
[2016-07-24] MEDS: PANTOprazole INJ 40 MG in SYRINGE 0 ML IV SCH (10:48)
[2016-07-24 14:43] VITALS: BP 111/68; PULSE 62; TEMP 36.6; O2SAT 97
[2016-07-24 16:00] VITALS: O2SAT 97
--- NOTE | 2016-07-24 16:00 | Progress Note ---
Subjective Date of Service: Jul 24, 2016. Subjective Pt evaluation today including: conversation w/ patient, physical exam, lab review feeling better had near normal BM pain and bloating improving no nausea tolerating clears well no other new complaitns Problem List Medical Problems: (1) Abdominal pain Status: Acute (2) Enteritis Status: Acute (3) Failure of outpatient treatment Status: Acute (4) Neck pain on left side Status: Acute (5) Pancreatitis Status: Acute (6) Tonsillitis Status: Acute Review of Systems ROS otherwise negative except for as above Objective Vital Signs Date Time Temp Pulse Resp B/P (MAP) Pulse Ox O2 Delivery O2 Flow Rate FiO2 07/24/16 14:43 36.6 62 18 111/68 (82) 97 Room Air 07/24/16 08:00 98 Room Air 07/24/16 07:30 36.4 56 20 132/82 (99) 98 Room Air 07/24/16 00:00 Room Air 07/23/16 23:09 36.4 57 18 98/60 (73) 96 Room Air 07/23/16 16:00 94 Room Air Physical Exam General Appearance: no apparent distress Eyes: EOMI ENT: hearing grossly normal Neck: trachea midline Respiratory/Chest: no respiratory distress, no accessory muscle use Abdomen: soft, + distended (mildly - about the same amount of distention as yesterday, but softer, far less tender, no guarding no rebound) Extremities: normal range of motion Neurologic/Psychiatric: per diem II-XII nml as tested, alert, normal mood/affect Skin: normal color, warm/dry Laboratory Results Last 24 Hours Test 07/23/16 16:31 07/23/16 20:05 07/23/16 21:11 07/24/16 07:42 Bedside Glucose 126 mg/dl 75 mg/dl 104 mg/dl 110 mg/dl Test 07/24/16 12:12 Bedside Glucose 109 mg/dl Assessment and Plan Enteritis/dehydration--continue cipro/flagyl and prns for pain/nausea. given acute onset and severity, without vomiting or diarrhea - agree abx to cover for possible bacterial enteritis. does appear improving. follow clinically. advance diet to low fiber - home ~12-24hrs depending on progress/tolerating diet -notes some degree of on again/off again sx for months - if persists after treating this episode, may need to consider capsule endoscopy since small bowel abnormal on current CT (thought to be due to infectious enteritis acutely, but if sx persist after treatment, then would be worthwhile to pursue) elevated lipase - clinically doesn't appear c/w pancreatitis - likely from intestinal stretch from above. follow clinically; repeat lipase in AM HIV-- reliable historian and notes good control of HIV, so doubt above relates to HIV/AIDS. as long as he's clinically improving, will hold off on ID consult , continue HIV meds BPH with MONTANO-- tamsulosin 0.4 mg by mouth at bedtime. follow Diabetes mellitus--A1c 6.3, holding metformin. would likely dc on metformin just daily (instead of twice a day) Hypercholesterolemia--resume lipitor DVT proph - lovenox
[2016-07-24 23:06] VITALS: BP 145/84; PULSE 63; TEMP 36.7; O2SAT 99
[2016-07-25] MEDS: CIPROFLOXACIN / D5W 400 MG in PREMIXED IN D5W 200 ML IV SCH ×2 (02:41→13:39)
[2016-07-25] MEDS: METRONIDAZOLE / NSS 500 MG in PREMIXED NSS 100 ML IV SCH ×2 (04:44→12:17)
[2016-07-25] MEDS: ACETAMINOPHEN 325 MG TAB PO PRN ×2 (04:53→12:20)
[2016-07-25 07:08] VITALS: BP 137/86; PULSE 53; TEMP 36.6; O2SAT 96
[2016-07-25] MEDS ORDERED: ATORVASTATIN 10 MG TAB PO SCH (08:00)
--- NOTE | 2016-07-25 08:11 | Progress Note ---
Subjective Date of Service: Jul 25, 2016. Problem List Medical Problems: (1) Abdominal pain Status: Acute (2) Enteritis Status: Acute (3) Failure of outpatient treatment Status: Acute (4) Neck pain on left side Status: Acute (5) Pancreatitis Status: Acute (6) Tonsillitis Status: Acute Objective Vital Signs Date Time Temp Pulse Resp B/P (MAP) Pulse Ox O2 Delivery O2 Flow Rate FiO2 07/25/16 07:08 36.6 53 18 137/86 (103) 96 Room Air 07/25/16 00:00 Room Air 07/24/16 23:06 36.7 63 20 145/84 (104) 99 Room Air 07/24/16 16:00 97 Room Air 07/24/16 14:43 36.6 62 18 111/68 (82) 97 Room Air Laboratory Results Last 24 Hours Test 07/24/16 12:12 07/24/16 16:45 07/24/16 20:17 07/25/16 06:25 Bedside Glucose 109 mg/dl 95 mg/dl 101 mg/dl Lipase 165 U/L Test 07/25/16 07:33 Bedside Glucose 102 mg/dl Assessment and Plan Enteritis/dehydration--improving on cipro/flagyl attempt to advance diet to low fiber will recommend GI follo up and consider capsule endoscopy since small bowel abnormal on current CT (thought to be due to infectious enteritis acutely , but if sx persist after treatment, then would be worthwhile to pursue) elevated lipase - clinically no symptoms of pancreatitis HIV-- reliable historian and notes good control of HIV, continue HIV meds BPH voiding without issue- tamsulosin 0.4 mg Diabetes mellitus--A1c 6.3, holding metformin. would likely dc on metformin reduced dose to daily (instead of twice a day) Hypercholesterolemia--resume lipitor DVT proph - lovenox
[2016-07-25] MEDS: CHOLECALCIFEROL 1000 INTER.UNIT TAB PO SCH (08:14)
[2016-07-25] MEDS: ENOXAPARIN 40 MG/0.4 ML SYR SQ SCH (08:15)
[2016-07-25] MEDS: INSULIN ASPART 100 UNITS/ML 3 ML PEN SC SCH ×3 (08:36→16:30)
[2016-07-25] MEDS: PANTOprazole INJ 40 MG in SYRINGE 0 ML IV SCH (12:18)
[2016-07-25] MEDS ORDERED: ONDA4TAB10 SL (13:05)
[2016-07-25] MEDS ORDERED: METR500T PO (13:05)
[2016-07-25] MEDS ORDERED: CPR500 PO (13:05)
--- NOTE | 2016-07-25 13:17 | Discharge Summary ---
Discharge Summary Date of Service Jul 25, 2016. Discharge Summary Admission Date: Jul 23, 2016 at 03:10 Discharge Date: Jul 25, 2016 Discharge Disposition: Home (snf) Principal Diagnosis: enteritis, concurrent HIV +status Medication Reconciliation New Medications: Ciprofloxacin (Ciprofloxacin HCl) 500 Mg Tab 500 MG PO BID for 10 Days, #20 TAB Metronidazole (Flagyl) 500 Mg Tab 500 MG PO TID for 10 Days, #3 TAB Ondasetron Odt (Zofran Odt) 4 Mg Tab 4 MG SL Q6H for Nausea, #6 TAB Continued Medications: Atorvastatin (Atorvastatin Calcium) 10 Mg Tab 10 MG PO DAILY Cholecalciferol (Vitamin D3) 5,000 Unit Cap 5000 UNIT PO DAILY Dolutegravir Sodium (Tivicay) 50 Mg Tab 50 MG PO DAILY Emtricitabine-Tenofovir Alafen (Descovy 200-25 mg) 1 Tab Tab 1 TAB PO DAILY Metformin Hcl (Glucophage) 500 Mg Tab 500 MG PO DAILY, TAB Discharge Exam Review of Systems: Constitutional: No fever, No chills, No sweats Respiratory: No cough, No sputum, No shortness of breath, No dyspnea on exertion Cardiovascular: No chest pain, No edema Abdomen: No pain, No nausea, No diarrhea, No constipation Genitourinary - Male: No hematuria, No dysuria Physical Exam: General Appearance: WD/WN, no apparent distress Eyes: normal inspection, PERRL, EOMI ENT: normal ENT inspection, pharynx normal Neck: supple, no JVD Respiratory/Chest: chest non-tender, lungs clear, normal breath sounds Cardiovascular: regular rate, rhythm, no murmur Abdomen / GI: normal bowel sounds, non tender, soft Extremities: no pedal edema, normal range of motion Neurologic/Psychiatric: alert, oriented x 3 Hospital Course Enteritis/dehydration--improving on cipro/flagyl attempt to advance diet to low fiber will recommend GI follo up and consider capsule endoscopy since small bowel abnormal on current CT thought to be due to infectious enteritis acutely elevated lipase - clinically no symptoms of pancreatitis HIV-- reliable historian and notes good control of HIV, continue HIV meds BPH voiding without issue- tamsulosin 0.4 mg Diabetes mellitus--A1c 6.3, holding metformin. would likely dc on metformin reduced dose to daily (instead of twice a day) Hypercholesterolemia--resume lipitor Total Time Spent: Greater than 30 minutes This includes examination of the patient, discharge planning, medication reconciliation, and communication with other providers. Discharge Instructions Please refer to the electronic Patient Visit Report (Discharge Instructions) for additional information.
--- NOTE | 2016-07-25 14:58 | Discharge Instructions ---
Discharge Instructions Date of Service Jul 25, 2016. Admission Reason for Admission: Enteritis, Bph Bladder Outlet Obstruction Discharge Discharge Diagnosis / Problem: enteritis Discharge Goals Goal(s): Diagnostic testing, Therapeutic intervention Activity Recommendations Activity Limitations: resume your previous activity . Current Hospital Diet Patient's current hospital diet: Diabetes Type 2 Diet, Low Fiber Diet Discharge Diet Recommended Diet: Regular Diet Pending Studies Studies pending at discharge: no Laboratory Results Hemoglobin A1c Test 07/23/16 14:08 Range/Units Estimated Average Glucose 134 mg/dl Hemoglobin A1c 6.3 H 4.5-5.6 % Medical Emergencies . Who to Call and When: Medical Emergencies: If at any time you feel your situation is an emergency, please call 911 immediately. . Non-Emergent Contact Non-Emergency issues call your: Primary Care Provider Call Non-Emergent contact if: temperature is above 101, your pain is unusual for you . . "Provider Documentation" section prepared by Jake Rodriguez. . VTE Core Measure Inpt VTE Proph given/why not?: SCD's
[2016-07-25 15:59] VITALS: BP 150/96; PULSE 60; TEMP 36.7; O2SAT 98
[2016-07-25 17:58] VITALS: BP 150/96; PULSE 60; TEMP 36.7; O2SAT 98
[2016-10-20] MEDS ORDERED: METH4PAK PO (11:39)
== END 2016-07-25 18:53 | DRG 371 ==
LOC: EDBD 22:14 → C.EDB 22:15 → C.MS4W 07-23 03:10 → ENRESERV 07-23 03:20
PROVIDERS: ADMIT Hospitalist; ATTEND Internal Medicine
DX: A04.9 Bacterial intestinal infection, unspecified (principal); B20 Human immunodeficiency virus [HIV] disease; E86.0 Dehydration; E11.9 Type 2 diabetes mellitus without complications; E78.00 Pure hypercholesterolemia, unspecified; N40.0 Benign prostatic hyperplasia without lower urinary tract symptoms; F17.200 Nicotine dependence, unspecified, uncomplicated; Z51.81 Encounter for therapeutic drug level monitoring; Z79.899 Other long term (current) drug therapy; Z79.84 Long term (current) use of oral hypoglycemic drugs

== ENCOUNTER 2016-10-18 10:17 | Inpatient (IN) | payer OTHER ==
[~2016-10-18] VITALS: Ht 180.3 cm; Wt 89.8 kg
[~2016-10-18 10:17] MED LIST changes: +CHOLCAP5 PO; +CPR500 PO; +ONDA4TAB10 SL; -TRDI60 INJ
[2016-10-18] MEDS ORDERED: SODIUM CHLORIDE 0.9% 1000ML 1,000 ML IV STA (10:59)
[2016-10-18] MEDS ORDERED: PIPERACILLIN/TAZOBACTAM 3.375 GM/100ML D5W IV STA (10:59)
[2016-10-18] MEDS ORDERED: MoRPHine SULFATE 4 MG/ML 1 ML CARP\\VIAL IV STA (10:59)
[2016-10-18] MEDS ORDERED: MAGIC1 PO (11:13)
[2016-10-18] MEDS ORDERED: ACET-1056 PO (11:13)
[2016-10-18] MEDS ORDERED: PRLSR20 PO (11:13)
[2016-10-18] MEDS ORDERED: AMOX1TAB44 PO (11:13)
[2016-10-18] MEDS ORDERED: FIBER PO (11:13)
[2016-10-18] MEDS ORDERED: OPTIRAY 320 IV PRN (11:15)
--- NOTE | 2016-10-18 11:25 | EMERGENCY ROOM VISIT NOTE ---
History First contact with patient: 10:50 (Jc Leonard PA-C) First contact with patient: 10:50 (Adair Alonso M.D.) Chief Complaint: THROAT PAIN/INJURY Stated Complaint: THROAT SWELLING History of Present Illness The patient is a 56 year old male who presents to the Emergency Room via escort from [facility] with complaints of "throat swelling". The patient states that this past Monday he began with left ear pain, that then progressed in the left jaw and the left side of his tongue hurting. He then notes the left anterior portion of his neck as location of pain. He states that on Monday he went to medical, and was given clindamycin, and that was October 14. He then notes no improvement and was switched to Augmentin on October 16. He has been taking them since then with out relief of his symptoms. He states that he was to have a scope done, but was unable to have this performed secondary to not able to have anesthesia with the throat swelling. He is here now referred by their facility over concern for his infection/swelling. He has associated chills. He notes he had this about one year ago, and have large tonsils. (Jc Leonard PA-C) Review of Systems A complete 10-point Review of Systems was discussed with the patient, with pertinent positives and negatives listed in the History of Present Illness. All remaining Review of Systems questions can be considered negative unless otherwise specified. (Jc Leonard PA-C) Past Medical/Surgical History Medical Problems: (1) Neck pain (2) Sialoadenitis of submandibular gland (Adair Alonso M.D.) Social History Smoking Status: Current Every Day Smoker Drug Use: cocaine Housing Status: other Occupation Status: other (Jc Leonard PA-C) Current/Historical Medications Scheduled Acetaminophen W/ Codeine (Acetaminophen/Codeine #3 300-30 mg), 2 TAB PO TID Amoxicillin & Pot Clavulanate (Amoxicillin/Clavulanate P), 1 TAB PO BID Atorvastatin (Atorvastatin Calcium), 10 MG PO HS Cholecalciferol (Vitamin D3), 5,000 UNIT PO DAILY Diphenhy/Alum/Mag/Sucralfa (Magic Swizzle - Diphenhy/Alum/Mag/Sucralfa), 15 ML PO QID Dolutegravir Sodium (Tivicay), 50 MG PO DAILY Emtricitabine-Tenofovir Alafen (Descovy 200-25 mg), 1 TAB PO DAILY Fiber Laxative (Fiber Laxative), 1 TAB PO BID Metformin Hcl (Glucophage), 500 MG PO BID Omeprazole (Prilosec), 20 MG PO DAILY Physical Exam Vital Signs Date Time Temp Pulse Resp B/P (MAP) Pulse Ox O2 Delivery O2 Flow Rate FiO2 10/18/16 12:39 136/87 10/18/16 12:39 58 20 136/87 96 Room Air 96 10/18/16 12:17 60 15 96 10/18/16 11:50 59 10/18/16 11:48 143/87 10/18/16 11:45 97 Room Air 10/18/16 10:22 36.7 75 18 145/94 95 Room Air (Adair Alonso M.D.) Physical Exam VITAL SIGNS - Vital signs and nursing notes were reviewed. Patient is currently afebrile, hypertensive 145/94, non-tachycardic and saturating well on room air at 95%. GENERAL -56-year-old male appearing his stated age who is in no acute distress. Communicates well with provider and answers questions appropriately. SKIN - Without rashes. No petechial rashes. HEAD - NC/AT. EYES - PERRL with EOMI bilaterally. Sclera anicteric. Palpebral conjunctiva pink and moist with no injection noted. EARS - No deformities of external structures noted on gross examination bilaterally. No pain elicited with palpation of the tragus bilaterally. External auditory canals without discharge or otorrhea. Tympanic membranes pearly fernandez without retraction or bulging. No fluid or purulent material visualized behind the TM. Handle of malleus, umbo, cone of light, pars tensa/ flaccid all easily visualized. There is tenderness upon insertion of the speculum in the left ear. NOSE - Midline and without cyanosis. No epistaxis or purulent drainage noted. Septum midline without deviation or septal hematoma noted. MOUTH/OROPHARYNX - Without perioral cyanosis. Buccal mucosa pink and moist and without leukoplakia. Exquisite trismus noted. Difficult to visualize the oropharynx. No evidence of erythema or undue edema. NECK - Neck with FROM. Supple to palpation. Exquisite left anterior cervical lymphadenopathy noted. No nuchal rigidity. LUNGS - Chest wall symmetric without accessory muscle use, intercostals retractions, or central cyanosis. Normal vesicular breath sounds CTA B/L. No wheezes, rales, or rhonchi appreciated. CARDIAC - RRR with S1/S2. No murmur, rubs, or gallops appreciated. NEUROLOGIC - Cranial nerves II through XII grossly intact. Sensory intact to light touch throughout. PSYCH - A&O.Pt is very pleasant and interacts well with examiner. (Jc Leonard, FELISHA) Medical Decision & Procedures ER Provider Diagnostic Interpretation: SOFT TISSUE NECK WITH HISTORY: 56 years-old Male Left anterior neck, tongue and jaw pain. COMPARISON: CT soft tissue neck 11/26/2015 TECHNIQUE: Multiple axial CT images of the soft tissues of the neck were obtained following the intravenous administration of 93 mL Optiray 320. A dose lowering technique was used consistent with the principals of ALARA. FINDINGS: The exam is mildly limited secondary to artifact from mandibular ORIF hardware. The nasopharynx, oropharynx and hypopharynx are patent. There are left palatine tonsiliths noted. Thyroid is homogeneous. Lung apices are generally clear with mild centrilobular emphysematous changes. Note is made of a bovine aortic arch. Carotid arteries appear patent. The parapharyngeal planes are symmetric. There is a large tonsillith within the left sublingual region measuring 1.5 x 0.7 x 0.7 cm, likely within the left submandibular duct with mild heterogeneity and increased size noted involving the left submandibular gland with mild surrounding stranding layering along the platysma fascia. Small punctate calcifications of the parotid glands are noted. Few nonspecific level 1 lymph nodes are seen measuring up to 6 mm in short axis. No drainable fluid collections. No suspicious bony lesions are identified. Note is made of incomplete bony fusion involving the posterior arch C1. There is mild left ethmoid and bilateral frontal sinus disease. Intervertebral disc space narrowing is seen at C5-C6. Severe facet arthropathy noted on the right at C4-C5. IMPRESSION: 1. Large tonsillith within the left sublingual region measuring 1.5 x 0.7 x 0.7 cm is likely within the left mid submandibular duct. There is associated mild heterogeneity, increased enhancement and enlargement of the left submandibular gland with surrounding inflammatory stranding suggesting associated sialadenitis. 2. Mildly prominent nonenlarged nonspecific level 1 lymph nodes may be reactive. 3. Mild centrilobular emphysema. 4. Intervertebral disc space narrowing is noted at C5-C6. Severe facet arthropathy is seen on the right at C4-C5. The above report was generated using voice recognition software. It may contain grammatical, syntax or spelling errors. Electronically signed by: Chad Navas M.D. 10/18/2016 1:05 PM Dictated Date/Time: 10/18/2016 12:56 PM (Jc Leonard PA-C) Laboratory Results 10/18/16 11:15 Red Blood Count 4.27, Mean Corpuscular Volume 96.5, Mean Corpuscular Hemoglobin 33.0, Mean Corpuscular Hemoglobin Concent 34.2, Mean Platelet Volume 9.1, Neutrophils (%) (Auto) 61.0, Lymphocytes (%) (Auto) 28.9, Monocytes (%) (Auto) 9.4, Eosinophils (%) (Auto) 0.2, Basophils (%) (Auto) 0.2, Neutrophils # (Auto) 3.72, Lymphocytes # (Auto) 1.76, Monocytes # (Auto) 0.57, Eosinophils # (Auto) 0.01, Basophils # (Auto) 0.01 10/18/16 11:15 Test 10/18/16 11:15 10/18/16 11:38 White Blood Count 6.09 K/uL (4.8-10.8) Red Blood Count 4.27 M/uL (4.7-6.1) Hemoglobin 14.1 g/dL (14.0-18.0) Hematocrit 41.2 % (42-52) Mean Corpuscular Volume 96.5 fL (80-100) Mean Corpuscular Hemoglobin 33.0 pg (25-34) Mean Corpuscular Hemoglobin Concent 34.2 g/dl (32-36) Platelet Count 213 K/uL (130-400) Mean Platelet Volume 9.1 fL (7.4-10.4) Neutrophils (%) (Auto) 61.0 % Lymphocytes (%) (Auto) 28.9 % Monocytes (%) (Auto) 9.4 % Eosinophils (%) (Auto) 0.2 % Basophils (%) (Auto) 0.2 % Neutrophils # (Auto) 3.72 K/uL (1.4-6.5) Lymphocytes # (Auto) 1.76 K/uL (1.2-3.4) Monocytes # (Auto) 0.57 K/uL (0.11-0.59) Eosinophils # (Auto) 0.01 K/uL (0-0.5) Basophils # (Auto) 0.01 K/uL (0-0.2) RDW Standard Deviation 43.3 fL (36.4-46.3) RDW Coefficient of Variation 12.3 % (11.5-14.5) Immature Granulocyte % (Auto) 0.3 % Immature Granulocyte # (Auto) 0.02 K/uL (0.00-0.02) Anion Gap 6.0 mmol/L (3-11) Est Creatinine Clear Calc Drug Dose 66.7 ml/min Estimated GFR () 70.2 Estimated GFR (Non- 60.6 BUN/Creatinine Ratio 12.2 (10-20) Calcium Level 9.5 mg/dl (8.5-10.1) Magnesium Level 2.4 mg/dl (1.8-2.4) Total Bilirubin 0.5 mg/dl (0.2-1) Aspartate Amino Transf (AST/SGOT) 11 U/L (15-37) Alanine Aminotransferase (ALT/SGPT) 16 U/L (12-78) Alkaline Phosphatase 69 U/L (45-117) Total Protein 8.1 gm/dl (6.4-8.2) Albumin 3.9 gm/dl (3.4-5.0) Globulin 4.2 gm/dl (2.5-4.0) Albumin/Globulin Ratio 0.9 (0.9-2) Bedside Lactic Acid Venous 0.90 mmol/L (0.90-1.70) (Adair Alonso M.D.) Medications Administered Medications (Trade) Dose Ordered Sig/Pamela Route Start Time Stop Time Status Last Admin Dose Admin Sodium Chloride 1,000 ml @ 999 mls/hr Q1H1M STAT IV 10/18/16 10:59 10/18/16 11:59 DC 10/18/16 11:54 999 MLS/HR Morphine Sulfate (MoRPHine SULFATE INJ) 4 mg NOW STAT IV 10/18/16 10:59 10/18/16 11:01 DC 10/18/16 11:54 4 MG Piperacillin Sod/ Tazobactam Sod (Zosyn Iv) 3.375 gm NOW STAT IV 10/18/16 10:59 10/18/16 11:01 DC 10/18/16 11:55 3.375 GM Acetaminophen (Tylenol Tab) 650 mg Q4H PRN PO 10/18/16 14:00 11/17/16 13:59 10/18/16 15:55 650 MG Morphine Sulfate (MoRPHine SULFATE INJ) 4 mg Q2H PRN IV 10/18/16 14:00 11/01/16 13:59 10/18/16 15:56 4 MG (Adair Alonso M.D.) Medical Decision Patient was seen and evaluated as above. After obtaining a thorough history and physical examination IV access was initiated, and the above workup was performed. Patient presents to us today with left throat swelling, and exquisite tenderness to palpation overlying the left mandibular angle, and left anterior neck. Attending also saw the patient, and the decision was made to obtain a CT scan of the neck. Zosyn was ordered for the patient over concern for infection. This reveals a very large stone, measuring up to 1.5 cm in the submandibular duct. There is concerning for surrounding infection. I then discussed the case with Dr. Vinson, ENT surgeon. it appears that this is nonsurgical at this time, as it is too large to scope. He indicated that he does not perform these procedures. He was recommended to call this down with IV steroids and antibiotics. He recommended Unasyn. I then decided to consult the hospitalist regarding admission. I do believe this is reasonable secondary to him taking outpatient oral antibiotics to include clindamycin and Augmentin without relief. Clindamycin was begun on the , and on the and Augmentin was then pursued. He is nontoxic. CBC reveals no evidence of leukocytosis or significant anemia. Metabolic panel is unremarkable for emergent process. Creatinine was slightly elevated at 1.3, I suspect this is likely secondary to dehydration given the patient's inability to tolerate food for the past 4 days. Please refer to further documentation regarding his stay. In evaluation treatment this patient following differential diagnoses were entertained: Peritonsillar abscess, stone, sialadenitis, among others. (Jc Leonard, PA-C) Impression Primary Impression: Sialoadenitis of submandibular gland Departure Information Dispostion Admitted as an inpatient Condition FAIR Referrals Vida ESPINO (PCP) Patient Instructions My [facility] ED Visit Note First contact with patient: 10:50 The patient was seen and examined with Jc. I agree with the history, physical and findings. Please see the note for disposition and details. (Adair Alonso M.D.)
[2016-10-18 11:54] LABS: BASO % 0.2 %; BASO ABS # 0.01 K/uL (0-0.2); COMPLETE YES; EOS % 0.2 %; HEMATOCRIT 41.2 % (42-52); IG% 0.3 %; LYMPH % 28.9 %; LYMPH ABS # 1.76 K/uL (1.2-3.4); MEAN CELL VOLUME 96.5 fL (80-100); MEAN CORPUSCULAR HGB CONC 34.2 g/dl (32-36); MEAN PLATELET VOLUME 9.1 fL (7.4-10.4); MONO % 9.4 %; PLATELET COUNT 213 K/uL (130-400); RED BLOOD COUNT 4.27 M/uL (4.7-6.1); WHITE BLOOD COUNT 6.09 K/uL (4.8-10.8)
[2016-10-18 12:11] LABS: BUN/CREATININE RATIO 12.2 (10-20); CALCIUM 9.5 mg/dl (8.5-10.1); CREATININE 1.3 mg/dl (0.60-1.40); MAGNESIUM 2.4 mg/dl (1.8-2.4); POTASSIUM 3.9 mmol/L (3.5-5.1)
[2016-10-18 12:14] LABS: ALB/GLOB RATIO 0.9 (0.9-2)
--- NOTE | 2016-10-18 13:07 | DIAGNOSTIC IMAGING REPORT ---
SOFT TISSUE NECK WITH HISTORY: 56 years-old Male Left anterior neck, tongue and jaw pain. COMPARISON: CT soft tissue neck 11/26/2015 TECHNIQUE: Multiple axial CT images of the soft tissues of the neck were obtained following the intravenous administration of 93 mL Optiray 320. A dose lowering technique was used consistent with the principals of JOSE JUAN. FINDINGS: The exam is mildly limited secondary to artifact from mandibular ORIF hardware. The nasopharynx, oropharynx and hypopharynx are patent. There are left palatine tonsiliths noted. Thyroid is homogeneous. Lung apices are generally clear with mild centrilobular emphysematous changes. Note is made of a bovine aortic arch. Carotid arteries appear patent. The parapharyngeal planes are symmetric. There is a large tonsillith within the left sublingual region measuring 1.5 x 0.7 x 0.7 cm, likely within the left submandibular duct with mild heterogeneity and increased size noted involving the left submandibular gland with mild surrounding stranding layering along the platysma fascia. Small punctate calcifications of the parotid glands are noted. Few nonspecific level 1 lymph nodes are seen measuring up to 6 mm in short axis. No drainable fluid collections. No suspicious bony lesions are identified. Note is made of incomplete bony fusion involving the posterior arch C1. There is mild left ethmoid and bilateral frontal sinus disease. Intervertebral disc space narrowing is seen at C5-C6. Severe facet arthropathy noted on the right at C4-C5. IMPRESSION: 1. Large tonsillith within the left sublingual region measuring 1.5 x 0.7 x 0.7 cm is likely within the left mid submandibular duct. There is associated mild heterogeneity, increased enhancement and enlargement of the left submandibular gland with surrounding inflammatory stranding suggesting associated sialadenitis. 2. Mildly prominent nonenlarged nonspecific level 1 lymph nodes may be reactive. 3. Mild centrilobular emphysema. 4. Intervertebral disc space narrowing is noted at C5-C6. Severe facet arthropathy is seen on the right at C4-C5. The above report was generated using voice recognition software. It may contain grammatical, syntax or spelling errors. Electronically signed by: Chad Navas M.D. 10/18/2016 1:05 PM Dictated Date/Time: 10/18/2016 12:56 PM
[2016-10-18] MEDS ORDERED: ONDANSETRON INJ 2 MG/ML 2 ML VIAL IV PRN (14:00)
[2016-10-18] MEDS ORDERED: ACETAMINOPHEN IV 100 ML IV PRN (14:00)
[2016-10-18] MEDS ORDERED: MoRPHine SULFATE 2 MG/ML CARP IV PRN (15:15)
[2016-10-18 15:55] VITALS: BP 198/107; PULSE 68; TEMP 37; O2SAT 94
[2016-10-18] MEDS: ACETAMINOPHEN 325 MG TAB PO PRN ×2 (15:55→22:36)
[2016-10-18] MEDS: MoRPHine SULFATE 4 MG/ML 1 ML CARP\\VIAL IV PRN ×3 (15:56→22:25)
[2016-10-18] MEDS: NSS + 20MEQ KCL 1000ML 1,000 ML IV SCH (16:33)
[2016-10-18] MEDS: FAMOTIDINE IV INJ 20 MG in DEXTROSE 5% 100ML 100 ML IV SCH (16:33)
[2016-10-18] MEDS ORDERED: NON-FORMULARY MEDICATION (Diphenhy/Alum/Mag/Sucralfa (Magic Swizzle - Diphenhy/Alum/Mag/Su PO SCH (17:00)
[2016-10-18] MEDS: METHYLPREDNISOLONE IV 60 MG in SYRINGE 0 ML IV SCH ×2 (17:23→22:24)
[2016-10-18] MEDS: MAGNESIUM PO SCH ×6 (17:23→21:00)
[2016-10-18] MEDS: SUCRALFATE PO SCH ×6 (17:23→21:00)
[2016-10-18] MEDS: ALUMINUM PO SCH ×6 (17:23→21:00)
[2016-10-18] MEDS: DIPHENHYDRAMINE HCL PO SCH ×6 (17:23→21:00)
[2016-10-18] MEDS: AMPICILLIN/SULBACTAM SOD INJ 3,000 MG in SODIUM CHLORIDE 0.9% 100ML 100 ML IV SCH ×2 (17:45→22:24)
[2016-10-18 18:00] VITALS: BP 198/107; PULSE 68; TEMP 37; O2SAT 94; Ht 180.3 cm; Wt 89.8 kg
--- NOTE | 2016-10-18 19:57 | History and Physical ---
History & Physical Date & Time of Service: Oct 18, 2016 at 19:41 Chief Complaint: Sialoadenitis Of Submandibular Gland Primary Care Physician: Vida ESPINO History of Present Illness Source: patient, hospital records The patient is a 56-year-old resident of [facility] who presents to the emergency department with complaints of left-sided facial, ear, neck pain and throat swelling. 6 days ago the pain began with his left ear then progressed to the left jaw and then to the left side of his face. He was started on clindamycin on October 14 and then changed to Augmentin on October 16 at the clinic there. He had a similar episode happened 1 year ago. He has had decreased oral intake over the past 4 days due to the pain being severe enough that he can't open his mouth very wide. Family History Noncontributory Social History Smoking Status: Current Every Day Smoker Smokeless Tobacco Use: Yes Alcohol Use: none Drug Use: cocaine Housing status: other Occupational Status: other Immunizations History of Influenza Vaccine: Unknown History of Tetanus Vaccine?: Unknown History of Pneumococcal: Unknown History of Hepatitis B Vaccine: Unknown Multi-Drug Resistant Organisms History of MDRO: No Allergies Coded Allergies: No Known Allergies (Unverified , 10/18/16) Home Medications Scheduled Acetaminophen W/ Codeine (Acetaminophen/Codeine #3 300-30 mg), 2 TAB PO TID Amoxicillin & Pot Clavulanate (Amoxicillin/Clavulanate P), 1 TAB PO BID Atorvastatin (Atorvastatin Calcium), 10 MG PO HS Cholecalciferol (Vitamin D3), 5,000 UNIT PO DAILY Diphenhy/Alum/Mag/Sucralfa (Magic Swizzle - Diphenhy/Alum/Mag/Sucralfa), 15 ML PO QID Dolutegravir Sodium (Tivicay), 50 MG PO DAILY Emtricitabine-Tenofovir Alafen (Descovy 200-25 mg), 1 TAB PO DAILY Fiber Laxative (Fiber Laxative), 1 TAB PO BID Metformin Hcl (Glucophage), 500 MG PO BID Omeprazole (Prilosec), 20 MG PO DAILY Review of Systems The patient denies chest pain, palpitations, shortness of breath, cough, lower extremity swelling, vision change, hearing change, sweats, weight change, fatigue, nausea, vomiting, diarrhea or constipation, abdominal pain, pelvic pain , blood in urine or stool, dysuria, urinary frequency or urgency, lightheadedness, dizziness, headache, memory loss, rash, abnormal bruising or bleeding, imbalance, focal or generalized weakness, numbness or tingling in arms or legs, generalized arthralgias or myalgias, back or neck pain, night sweats, or allergy symptoms. The review of systems is otherwise negative other than for that already noted above, and at least 10 systems have been reviewed. Physical Exam Vital Signs Date Time Temp Pulse Resp B/P (MAP) Pulse Ox O2 Delivery O2 Flow Rate FiO2 10/18/16 15:55 37.0 68 20 198/107 (137) 94 Room Air 10/18/16 15:10 62 18 133/82 98 10/18/16 12:39 136/87 10/18/16 12:39 58 20 136/87 96 Room Air 96 10/18/16 12:17 60 15 96 10/18/16 11:50 59 10/18/16 11:48 143/87 10/18/16 11:45 97 Room Air 10/18/16 10:22 36.7 75 18 145/94 95 Room Air The patient is awake, well-developed and adequately nourished, alert and oriented 3, normocephalic and atraumatic, lying in bed and in no acute distress. HEENT--PERRL, EOMI, mucous membranes and oropharynx dry. Opening his mouth is limited due to pain. Neck--supple, no JVD or bruits, thyroid normal, swelling and tenderness over left submandibular gland, preauricular area and neck. Heart--normal S1 and S2, no extra beats, no murmurs, rubs or gallops. Lungs--clear bilaterally with good air movement, no respiratory distress, no accessory muscle use. Abdomen--normal bowel sounds and soft, nontender and nondistended, no hernias or masses, no organomegaly. Extremities--no cyanosis, clubbing or edema. There are good distal pulses b/l. Dermatologic--normal skin turgor, normal color, warm and dry, no abnormal lymph nodes, no rash. Neurologic--cranial nerves II through XII grossly intact, motor and sensory examination normal. Rheumatologic--normal range of motion, nontender, muscles and joints. Psychiatric--normal affect. Diagnostics Laboratory Results Results Past 24 Hours Test 10/18/16 11:15 10/18/16 11:38 Range/Units White Blood Count 6.09 4.8-10.8 K/uL Red Blood Count 4.27 4.7-6.1 M/uL Hemoglobin 14.1 14.0-18.0 g/dL Hematocrit 41.2 42-52 % Mean Corpuscular Volume 96.5 80-100 fL Mean Corpuscular Hemoglobin 33.0 25-34 pg Mean Corpuscular Hemoglobin Concent 34.2 32-36 g/dl Platelet Count 213 130-400 K/uL Mean Platelet Volume 9.1 7.4-10.4 fL Neutrophils (%) (Auto) 61.0 % Lymphocytes (%) (Auto) 28.9 % Monocytes (%) (Auto) 9.4 % Eosinophils (%) (Auto) 0.2 % Basophils (%) (Auto) 0.2 % Neutrophils # (Auto) 3.72 1.4-6.5 K/uL Lymphocytes # (Auto) 1.76 1.2-3.4 K/uL Monocytes # (Auto) 0.57 0.11-0.59 K/uL Eosinophils # (Auto) 0.01 0-0.5 K/uL Basophils # (Auto) 0.01 0-0.2 K/uL RDW Standard Deviation 43.3 36.4-46.3 fL RDW Coefficient of Variation 12.3 11.5-14.5 % Immature Granulocyte % (Auto) 0.3 % Immature Granulocyte # (Auto) 0.02 0.00-0.02 K/uL Sodium Level 142 136-145 mmol/L Potassium Level 3.9 3.5-5.1 mmol/L Chloride Level 107 98-107 mmol/L Carbon Dioxide Level 29 21-32 mmol/L Anion Gap 6.0 3-11 mmol/L Blood Urea Nitrogen 16 7-18 mg/dl Creatinine 1.30 0.60-1.40 mg/dl Est Creatinine Clear Calc Drug Dose 66.7 ml/min Estimated GFR () 70.2 Estimated GFR (Non- 60.6 BUN/Creatinine Ratio 12.2 10-20 Random Glucose 103 70-99 mg/dl Calcium Level 9.5 8.5-10.1 mg/dl Magnesium Level 2.4 1.8-2.4 mg/dl Total Bilirubin 0.5 0.2-1 mg/dl Aspartate Amino Transf (AST/SGOT) 11 15-37 U/L Alanine Aminotransferase (ALT/SGPT) 16 12-78 U/L Alkaline Phosphatase 69 45-117 U/L Total Protein 8.1 6.4-8.2 gm/dl Albumin 3.9 3.4-5.0 gm/dl Globulin 4.2 2.5-4.0 gm/dl Albumin/Globulin Ratio 0.9 0.9-2 Bedside Lactic Acid Venous 0.90 0.90-1.70 mmol/L Microbiology Results 10/18/16 Blood Culture, Received Pending 10/18/16 Blood Culture, Received Pending Diagnostic Radiology Patient Name: AMARJIT SCHREIBER [id number] Unit Number: [id number] Dictated: 10/18/161255 Transcribed: 10/18/161255 JRB Printed Date/Time: [~ rep prt dt]/[~ rep prt tm] [~ rep ct labl] - [~ rep ct ivnm] [facility] [place] [address] Dictated: 10/18/161255 Transcribed: 10/18/161255 JRB Printed Date/Time: [~ rep prt dt]/[~ rep prt tm] [~ rep ct labl] - [~ rep ct ivnm] SOFT TISSUE NECK WITH HISTORY: 56 years-old Male Left anterior neck, tongue and jaw pain. COMPARISON: CT soft tissue neck 11/26/2015 TECHNIQUE: Multiple axial CT images of the soft tissues of the neck were obtained following the intravenous administration of 93 mL Optiray 320. A dose lowering technique was used consistent with the principals of ALARA. FINDINGS: The exam is mildly limited secondary to artifact from mandibular ORIF hardware. The nasopharynx, oropharynx and hypopharynx are patent. There are left palatine tonsiliths noted. Thyroid is homogeneous. Lung apices are generally clear with mild centrilobular emphysematous changes. Note is made of a bovine aortic arch. Carotid arteries appear patent. The parapharyngeal planes are symmetric. There is a large tonsillith within the left sublingual region measuring 1.5 x 0.7 x 0.7 cm, likely within the left submandibular duct with mild heterogeneity and increased size noted involving the left submandibular gland with mild surrounding stranding layering along the platysma fascia. Small punctate calcifications of the parotid glands are noted. Few nonspecific level 1 lymph nodes are seen measuring up to 6 mm in short axis. No drainable fluid collections. No suspicious bony lesions are identified. Note is made of incomplete bony fusion involving the posterior arch C1. There is mild left ethmoid and bilateral frontal sinus disease. Intervertebral disc space narrowing is seen at C5-C6. Severe facet arthropathy noted on the right at C4-C5. IMPRESSION: 1. Large tonsillith within the left sublingual region measuring 1.5 x 0.7 x 0.7 cm is likely within the left mid submandibular duct. There is associated mild heterogeneity, increased enhancement and enlargement of the left submandibular gland with surrounding inflammatory stranding suggesting associated sialadenitis. 2. Mildly prominent nonenlarged nonspecific level 1 lymph nodes may be reactive. 3. Mild centrilobular emphysema. 4. Intervertebral disc space narrowing is noted at C5-C6. Severe facet arthropathy is seen on the right at C4-C5. The above report was generated using voice recognition software. It may contain grammatical, syntax or spelling errors. Electronically signed by: Chad Navas M.D. 10/18/2016 1:05 PM Dictated Date/Time: 10/18/2016 12:56 PM The status of this report is Signed. Draft = Not yet reviewed or approved by Radiologist. Signed = Reviewed and approved by Radiologist. <AttendingPhy></AttendingPhy> <FamilyPhy>Rico ESPINOner</FamilyPhy> <PrimaryPhy>Vida ESPINO</PrimaryPhy> <UnitNumber>[id number]</UnitNumber> <VisitNumber> [id number]</VisitNumber> <PatientName>AMARJIT SCHREIBER [id number]</PatientName> < DateOfBirth>1960</DateOfBirth> <Location>[facility]</Location> <ServiceDate></ServiceDate> <MNE>ESINDI</MNE> <OrderingPhy>Jc Leonard PA-C</ OrderingPhy> <OrderingPhyMNE>f rep ord dr menchaca</OrderingPhyMNE> <DictatingPhyMNE> f rep dict dr menchaca</DictatingPhyMNE> <CCListMNE>f rep ct bernarda</CCListMNE> < AdmittingPhyMNE>f pt admit dr menchaca</AdmittingPhyMNE> <AttendingPhyMNE>f pt attend dr menchaca</AttendingPhyMNE> <ConsultingPhyMNE>f pt consult dr menchaca</ConsultingPhyMNE> <FamilyPhyMNE>f pt fam dr menchaca</FamilyPhyMNE> <OtherPhyMNE>f pt other dr menchaca</OtherPhyMNE> < PrimaryPhyMNE>f pt prim care dr menchaca</PrimaryPhyMNE> <ReferringPhyMNE>f pt referring dr menchaca</ReferringPhyMNE> Impression Assessment and Plan Sialadenitis of the left submandibular gland with tonsillith--patient will be admitted to the medical surgical floor. Full liquid diet until pain and inflammation are controlled enough to open up his mouth further. Solu-Medrol 125 mg IV now and then 60 mg IV every 6 hours. Unasyn 3 g IV every 6 hours. Normal saline with KCl 20 mEq at 100 mils per hour. Acetaminophen with codeine No. 3, 2 tabs by mouth 3 times a day when necessary moderate pain. Morphine sulfate 4 mg IV every 2 hours when necessary severe pain. HIV--continue Tivicay and Descovy. GERD--change omeprazole to pantoprazole. Diabetes mellitus--hold metformin, place on Accu-Cheks before meals and at bedtime with NovoLog coverage per scale. Hyperlipidemia--continue atorvastatin 10 mg by mouth at bedtime. Level of Care Med/Surg Advanced Directives Existing Advance Directive: No Existing Living Will: No Existing Power of Plant Operator: No VTE Prophylaxis VTE Risk Assessment Done? Y/N: Yes Risk Level: Moderate Given or contraindicated: SCD's
[2016-10-18 20:21] VITALS: BP 134/76; PULSE 57; TEMP 36.9; O2SAT 93
[2016-10-18] MEDS: CALCIUM POLYCARBOPHIL 1 TAB PO SCH (22:25)
[2016-10-18] MEDS: ATORVASTATIN 10 MG TAB PO SCH (22:26)
[2016-10-19 00:24] VITALS: BP 150/81; PULSE 67; TEMP 36.5; O2SAT 93
[2016-10-19] MEDS: NSS + 20MEQ KCL 1000ML 1,000 ML IV SCH ×3 (03:31→22:09)
[2016-10-19] MEDS: METHYLPREDNISOLONE IV 60 MG in SYRINGE 0 ML IV SCH ×3 (03:31→21:34)
[2016-10-19] MEDS: FAMOTIDINE IV INJ 20 MG in DEXTROSE 5% 100ML 100 ML IV SCH (03:36)
[2016-10-19] MEDS: MoRPHine SULFATE 4 MG/ML 1 ML CARP\\VIAL IV PRN ×3 (04:07→21:44)
[2016-10-19] MEDS: AMPICILLIN/SULBACTAM SOD INJ 3,000 MG in SODIUM CHLORIDE 0.9% 100ML 100 ML IV SCH ×4 (05:02→22:10)
[2016-10-19 08:12] VITALS: BP 126/74; PULSE 59; TEMP 36.7; O2SAT 93
[2016-10-19] MEDS: CHOLECALCIFEROL 1000 INTER.UNIT TAB PO SCH (08:24)
[2016-10-19] MEDS: ACETAMINOPHEN 325 MG TAB PO PRN ×3 (08:24→21:45)
[2016-10-19] MEDS: DOLUTEGRAVIR SODIUM 50 MG TAB PO SCH (08:25)
[2016-10-19] MEDS: CALCIUM POLYCARBOPHIL 1 TAB PO SCH ×2 (08:25→21:38)
[2016-10-19] MEDS: MAGNESIUM PO SCH ×12 (08:25→21:00)
[2016-10-19] MEDS: EMTRICITABINE TENOFOVIR PO SCH (08:25)
[2016-10-19] MEDS: DIPHENHYDRAMINE HCL PO SCH ×12 (08:25→21:00)
[2016-10-19] MEDS: SUCRALFATE PO SCH ×12 (08:25→21:00)
[2016-10-19] MEDS: ALUMINUM PO SCH ×12 (08:25→21:00)
--- NOTE | 2016-10-19 14:03 | Progress Note ---
Subjective Date of Service: Oct 19, 2016. Subjective Pt evaluation today including: conversation w/ patient, physical exam, chart review, lab review, review of studies, review of inpatient medication list Resting comfortably in bed States jaw pain improved Wanting to try regular diet No fevers overnight Problem List Medical Problems: (1) Abdominal pain Status: Acute (2) Enteritis Status: Acute (3) Failure of outpatient treatment Status: Acute (4) Neck pain on left side Status: Acute (5) Pancreatitis Status: Acute (6) Tonsillitis Status: Acute Review of Systems Constitutional: No fever, No chills, No sweats, No weakness ENT: No hearing loss, No unusual epistaxis, No nasal symptoms, No sore throat, No trouble swallowing Respiratory: No cough, No sputum, No wheezing, No shortness of breath Cardiac: No chest pain, No orthopnea, No PND, No edema, No claudication Abdomen: No pain, No nausea, No vomiting, No diarrhea, No constipation Musculoskeletal: + muscle pain, No joint pain, No swelling, No calf pain Male : No dysuria, No urinary frequency, No incontinence, No slowing stream Neurologic: No memory loss, No paralysis, No weakness, No numbness/tingling Psychiatric: No depression symptoms, No anhedonism, No anxiety, No insomnia Heme: No abnormal bleeding/bruising, No clotting problems Skin: No rash, No itch Objective Vital Signs Date Time Temp Pulse Resp B/P (MAP) Pulse Ox O2 Delivery O2 Flow Rate FiO2 10/19/16 08:30 Room Air 10/19/16 08:12 36.7 59 18 126/74 (91) 93 Room Air 10/19/16 00:24 36.5 67 20 150/81 (104) 93 Room Air 10/19/16 00:00 Room Air 10/18/16 20:21 36.9 57 16 134/76 (95) 93 Room Air 10/18/16 18:00 37.0 68 20 198/107 94 Room Air 96 10/18/16 15:55 37.0 68 20 198/107 (137) 94 Room Air 10/18/16 15:10 62 18 133/82 98 Physical Exam General Appearance: WD/WN, no apparent distress Eyes: normal inspection, PERRL, EOMI, sclerae normal Neck: supple, no adenopathy, thyroid normal, no JVD Respiratory/Chest: chest non-tender, lungs clear, normal breath sounds, no respiratory distress Cardiovascular: regular rate, rhythm, no edema, no gallop, no JVD Abdomen: normal bowel sounds, non tender, soft, no organomegaly Extremities: non-tender, normal inspection, no pedal edema, no calf tenderness Neurologic/Psychiatric: no motor/sensory deficits, alert, normal mood/affect, oriented x 3 Laboratory Results Last 24 Hours Test 10/18/16 20:49 Bedside Glucose 129 mg/dl Assessment and Plan Sialadenitis of the left submandibular gland with tonsillith--patient admitted to the medical surgical floor. Advance diet as tolerated as pain controlled Warm compresses to affected area Taper solu-Medrol 60 mg IV to q 12 hours. Unasyn 3 g IV every 6 hours, no leukocytosis or fevers Normal saline with KCl 20 mEq at 100 mils per hour. Acetaminophen with codeine No. 3, 2 tabs by mouth 3 times a day when necessary moderate pain. Morphine sulfate 4 mg IV every 2 hours when necessary severe pain. HIV--continue Tivicay and Descovy. GERD--change omeprazole to pantoprazole. Diabetes mellitus--hold metformin, place on Accu-Cheks before meals and at bedtime with NovoLog coverage per scale. Hyperlipidemia--continue atorvastatin 10 mg by mouth at bedtime.
[2016-10-19 15:53] VITALS: BP 147/83; PULSE 68; TEMP 37; O2SAT 97
[2016-10-19 18:00] VITALS: O2SAT 97
[2016-10-19] MEDS: ATORVASTATIN 10 MG TAB PO SCH (21:37)
[2016-10-19] MEDS: FAMOTIDINE 20 MG TAB PO SCH (21:37)
[2016-10-19 23:27] VITALS: BP 136/76; PULSE 96; TEMP 37.3; O2SAT 96
[2016-10-20] MEDS: AMPICILLIN/SULBACTAM SOD INJ 3,000 MG in SODIUM CHLORIDE 0.9% 100ML 100 ML IV SCH (04:52)
[2016-10-20] MEDS: MoRPHine SULFATE 4 MG/ML 1 ML CARP\\VIAL IV PRN (04:57)
[2016-10-20] MEDS ORDERED: DEXTROSE 50% 50 ML SYR IV PRN (05:45)
[2016-10-20] MEDS ORDERED: GLUCOSE 10 TABS/TUBE PO PRN (05:45)
[2016-10-20] MEDS ORDERED: GLUCAGON FOR INJ 1 MG VIAL SQ PRN (05:45)
[2016-10-20] MEDS ORDERED: GLUCOSE 40% GEL 15 GM TUBE PO PRN (05:45)
[2016-10-20] MEDS: NSS + 20MEQ KCL 1000ML 1,000 ML IV SCH (08:03)
[2016-10-20] MEDS: ACETAMINOPHEN 325 MG TAB PO PRN ×2 (08:03→12:45)
[2016-10-20] MEDS: CALCIUM POLYCARBOPHIL 1 TAB PO SCH (08:04)
[2016-10-20] MEDS: CHOLECALCIFEROL 1000 INTER.UNIT TAB PO SCH (08:04)
[2016-10-20] MEDS: FAMOTIDINE 20 MG TAB PO SCH (08:04)
[2016-10-20] MEDS: DOLUTEGRAVIR SODIUM 50 MG TAB PO SCH (08:04)
[2016-10-20 08:05] VITALS: BP 117/67; PULSE 54; TEMP 36.6; O2SAT 95
[2016-10-20] MEDS: EMTRICITABINE TENOFOVIR PO SCH (08:05)
[2016-10-20] MEDS: MAGNESIUM PO SCH ×6 (08:07→12:44)
[2016-10-20] MEDS: SUCRALFATE PO SCH ×6 (08:07→12:44)
[2016-10-20] MEDS: ALUMINUM PO SCH ×6 (08:07→12:44)
[2016-10-20] MEDS: DIPHENHYDRAMINE HCL PO SCH ×6 (08:07→12:44)
[2016-10-20] MEDS: METHYLPREDNISOLONE IV 60 MG in SYRINGE 0 ML IV SCH (09:21)
[2016-10-20] MEDS: INSULIN ASPART 100 UNITS/ML 3 ML PEN SC SCH ×2 (09:22→12:44)
[2016-10-20] MEDS ORDERED: METH4PAK PO (11:39)
--- NOTE | 2016-10-20 11:41 | Discharge Instructions ---
Discharge Instructions Date of Service Oct 20, 2016. Admission Reason for Admission: Sialoadenitis Of Submandibular Gland Discharge Discharge Diagnosis / Problem: Sialoadenitis Discharge Goals Goal(s): Decrease discomfort, Improve function, Increase independence, Improve disease control, Learn about illness, Diagnostic testing, Therapeutic intervention, Prevent Disease Progression Activity Recommendations Activity Limitations: resume your previous activity Exercise/Sports Limitations: as tolerated . Instructions / Follow-Up Instructions / Follow-Up Patient to be discharged home No indication for antibiotics at this time Continue warm compresses to jaw Can utilize medrol dose duy Pain controlled at this time Please follow up with provider at correctional facility in 1 week Current Hospital Diet Patient's current hospital diet: Diabetes Type 2 Diet Discharge Diet Recommended Diet: Diabetes Type 2 Diet Pending Studies Studies pending at discharge: no Laboratory Results Hemoglobin A1c Test 07/23/16 14:08 Range/Units Estimated Average Glucose 134 mg/dl Hemoglobin A1c 6.3 H 4.5-5.6 % Medical Emergencies . Who to Call and When: Medical Emergencies: If at any time you feel your situation is an emergency, please call 911 immediately. . Non-Emergent Contact Non-Emergency issues call your: Primary Care Provider Call Non-Emergent contact if: you have a fever, your pain is worsening . . "Provider Documentation" section prepared by Haja Clancy. . VTE Core Measure Inpt VTE Proph given/why not?: SCD's
--- NOTE | 2016-10-20 11:42 | Discharge Summary ---
Discharge Summary Date of Service Oct 20, 2016. Discharge Summary Admission Date: Oct 18, 2016 at 14:03 Discharge Date: Oct 20, 2016 Discharge Disposition: Acute care facility ([facility]) Principal Diagnosis: Sialdenitis Immunizations: Have You Had Influenza Vaccine: Unknown History of Tetanus Vaccine?: Unknown History of Pneumococcal: Unknown History of Hepatitis B Vaccine: Unknown Medication Reconciliation New Medications: Methylprednisolone (Medrol Dosepak) 4 Mg Fredi 0 PO DAILY, #1 PKT Continued Medications: Acetaminophen W/ Codeine (Acetaminophen/Codeine #3 300-30 mg) 1 Tab Tab 2 TAB PO TID Atorvastatin (Atorvastatin Calcium) 10 Mg Tab 10 MG PO HS Cholecalciferol (Vitamin D3) 5,000 Unit Cap 5000 UNIT PO DAILY Diphenhy/Alum/Mag/Sucralfa (Magic Swizzle - Diphenhy/Alum/Mag/Sucralfa) Susp 15 ML PO QID 30ML DIPHENHYDRAMINE SLN 12.5/5ML 60ML MAALOX 4GM CARAFATE SWISH AND SPIT Dolutegravir Sodium (Tivicay) 50 Mg Tab 50 MG PO DAILY Emtricitabine-Tenofovir Alafen (Descovy 200-25 mg) 1 Tab Tab 1 TAB PO DAILY Fiber Laxative (Fiber Laxative) Ea 1 TAB PO BID Metformin Hcl (Glucophage) 500 Mg Tab 500 MG PO BID Omeprazole (Prilosec) 20 Mg Capcr 20 MG PO DAILY, CAP Discontinued Medications: Amoxicillin & Pot Clavulanate (Amoxicillin/Clavulanate P) 1 Tab Tab 1 TAB PO BID Discharge Exam Review of Systems: Constitutional: No fever, No chills, No sweats, No weight loss, No weakness ENT: + problem reported (pain on opening jaw), No hearing loss, No unusual epistaxis, No nasal symptoms, No trouble swallowing Respiratory: No cough, No sputum, No wheezing, No shortness of breath, No dyspnea at rest Cardiovascular: No chest pain, No orthopnea, No PND, No edema, No claudication Abdomen: No pain, No nausea, No vomiting, No diarrhea, No constipation Musculoskeletal: No joint pain, No muscle pain, No swelling, No calf pain Genitourinary - Male: No hematuria, No dysuria, No urinary frequency, No urinary urgency Neurologic: No memory loss, No paralysis, No weakness, No numbness/tingling Psychiatric: No depression symptoms, No anhedonism, No anxiety, No insomnia Endocrine: No fatigue, No excessive thirst, No excessive urination Integumentary: No rash, No itch, No new/changing skin lesions Physical Exam: General Appearance: WD/WN, no apparent distress Eyes: normal inspection, PERRL, EOMI, sclerae normal ENT: hearing grossly normal, pharynx normal, + pertinent finding (swelling on left side of face, improvement in pain with opening of jaw) Neck: supple, no adenopathy, thyroid normal, no JVD Respiratory/Chest: chest non-tender, lungs clear, normal breath sounds, no respiratory distress Cardiovascular: no edema, no gallop, no JVD, no murmur Abdomen / GI: non tender, soft, no organomegaly, no pulsatile mass Extremities: normal inspection, no calf tenderness, normal capillary refill , no pedal edema Neurologic/Psychiatric: no motor/sensory deficits, alert, normal mood/affect , oriented x 3 Skin: normal color, warm/dry, no rash Lymphatic: no adenopathy Hospital Course Sialadenitis of the left submandibular gland with tonsillith--patient admitted to the medical surgical floor. Warm compresses to affected area Taper solu-Medrol 60 mg IV to q 12 hours, can be discharged on medrol dose fredi Unasyn 3 g IV every 6 hours, no leukocytosis or fevers, no further indication for antibx on discharge Acetaminophen with codeine No. 3, 2 tabs by mouth 3 times a day when necessary moderate pain. Morphine sulfate 4 mg IV every 2 hours when necessary severe pain. Discharge back to correctional facility, recommend warm compresses HIV--continue Tivicay and Descovy. GERD--change omeprazole to pantoprazole. Diabetes mellitus--hold metformin, place on Accu-Cheks before meals and at bedtime with NovoLog coverage per scale. Hyperlipidemia--continue atorvastatin 10 mg by mouth at bedtime. Pt is FULL CODE Total Time Spent: Greater than 30 minutes This includes examination of the patient, discharge planning, medication reconciliation, and communication with other providers. Discharge Instructions Please refer to the electronic Patient Visit Report (Discharge Instructions) for additional information.
[2016-10-20 12:53] VITALS: BP 117/67; PULSE 54; TEMP 36.6; O2SAT 95
== END 2016-10-20 14:07 | disposition home or self-care (01) | DRG 156 ==
LOC: C.EDB 10:18 → C.MS2W 14:03 → ENRESERV 14:22
PROVIDERS: ADMIT Hospitalist; ATTEND Hospitalist
DX: K11.20 Sialoadenitis, unspecified (principal); F17.200 Nicotine dependence, unspecified, uncomplicated; K21.9 Gastro-esophageal reflux disease without esophagitis; E11.9 Type 2 diabetes mellitus without complications; E78.5 Hyperlipidemia, unspecified; Z21 Asymptomatic human immunodeficiency virus [HIV] infection status; J03.90 Acute tonsillitis, unspecified; K52.9 Noninfective gastroenteritis and colitis, unspecified